=== PATIENT | female | born 1950 | race Caucasian/White ===

== ENCOUNTER → 2017-07-25 15:06 | Outpatient (CLI) | payer MEDICARE, SELFPAY ==
--- NOTE | 2017-07-25 15:08 | RAD_ITS ---
STUDY: X-RAY CHEST REASON FOR EXAM: Female, 66 years old. Cough fever and shortness of breath TECHNIQUE: PA and lateral views of the chest. COMPARISON: None. FINDINGS: The lungs are clear and expanded. There is no demonstrated pleural abnormality. Normal size heart. Normal mediastinum and sree. Normal visualized pulmonary arteries. There are calcified plaques of the aortic arch. Orthopedic hardware is seen in the thoracolumbar region. Normal visualized ribs, clavicles, and shoulders. There is no demonstrated abnormality of the visualized soft tissue structures of the upper abdomen. RAD/Chest PA and Lateral IMPRESSION: Orthopedic hardware seen in the thoracolumbar region. Calcified plaques of the aortic arch. No acute cardiopulmonary disease process is seen. Electronically Signed: Archie Urena MD at 22:56 EDT , Service support ,
== END ==
PROVIDERS: Family Provider Family Medicine; PCP Family Medicine; Visit Provider Family Medicine
DX: R05 Cough (principal)
CPT/HCPCS: 71046

== ENCOUNTER 2017-08-14 15:30 | Outpatient (RCR) | payer MEDICARE, SELFPAY ==
--- NOTE | 2017-04-24 15:31 | HP.PTEVAL_ITS ---
Patient's Visit Information INDIGO ROD is a 66 year old F referred to Physical Therapy by Out of Town Doctor CJ PINK with a diagnosis of BACK AND RIGHT LEG PAIN. Date of Evaluation: 04/24/17 Physical Therapist: Shonna Cabrera - Visit Plan Frequency: 2-3x /Week Duration: 4-6 Weeks Plan: AQUATIC THERAPY. POSTURE CORRECTION/STRENGTHENING, INSTRUCTION IN APPROPRIATE BODY MECHANICS AND ACTIVITY MODIFICATIONS. DLS STARTING WITH A NEUTRAL SPINE PROGRESSING ROM TOLERATED. RODO LE ROM, STRETCHING AND STRENGTHENING. HEP INSTRUCTION. - Subjective Subjective: Work/Leisure: RETIRED. Disability: YES. Present symptoms: BILATERAL LBP. PATIENT DENIES RODO LE PAIN, NUMBNESS AND TINGLING. SHE DOES HAVE RODO KNEE PAIN THOUGH. RODO INTERMITTENT SHARP PAINS INTO RODO BUTTOCK REGIONS. Present since: JAN 2016 BACK SURGERY. LBP PRIOR ALSO - CHRONIC. Pain Scale: BACK: WORSE 7/10, LEAST 3/10. RIGHT KNEE: WORST 9/10, LEAST 5/ 10. Currently: BACK 4/10. RIGHT KNEE: 6/10. SHE REPORTS HER KNEE IS GETTING WORSE AND HER BACK IS UNCHANGING. Commenced as a result of: HURTING HER BACK IN 1983. CHRONIC RIGHT KNEE PAIN AND ARTHRITIS. Symptoms at onset: BACK. Worse: WALKING, STANDING, ADL'S, *BENDING*, GETTING IN/OUT OF CAR. Better: LYING DOWN. Disturbed sleep: YES - RLS. Previous history: 1983 HURT HER BACK AND THAT IS WHEN HER BACK PROBLEMS STARTED. NOT SURE WHEN KNEE PAIN STARTED BUT IT HAS BEEN A LONG TIME. Previous treatment: AQUATIC THERAPY, INJECTIONS, LAND EX, CHIRO ALL PRIOR TO SURGERY. PT SINCE SURGERY HERE AT [facility] [place]. LEFT KNEE DRAINED. RIGHT KNEE CORTISONE INJECTIONS WITH TEMP. RELEIF. SYNVISC TYPE INJECTIONS RIGHT KNEE. NO RIGHT KNEE SURGERY. LEFT TKR 2012. Coughing/ sneezing/straining: NEGATIVE. Gait: CANE ALMOST AT ALL TIMES. Difficulty initiating urinatin: NO. Accidents: NO. Unexplained weight loss: NO. PMH: FIBROMYALGIA AND SEE BELOW. Recent major surgery: BLADDER STIMULATOR PLACEMENT MID APRIL. OTHER: THE RIGHT KNEE HAS BEEN BONE ON BONE FOR 3-4 YEARS. HER LEFT KNEE WAS REPLACE IN 2012 BUT SHE STATES IT HURTS HER QUITE A BIT TOO. SHE IS AVOIDING RIGHT TKR DUE TO THE PROBLEMS SHE HAD WITH HER LEFT. OTHER: CONSULT WITH DR. VILLAREAL FEB 2017 AND HE CONCURRED WITH PT ORDERED BY BACK SURGEONS NANOTECHNICIAN. DR. VILLAREAL RECOMMENDED SURGERY BUT CAUTIONED PATIENT OF DIFFICULTIES POST DUE TO LACK OF BEND IN RIGHT KNEE. HE ALSO RECOMMENDS REVISION OF LEFT KNEE. *PATIENT WAS ALSO SEEN HERE [place] FOR AQUATIC THERAPY FOR HER BACK* PATIENT REPORTS SHE IS DEFINATELY ABLE TO MOVE EASIER IN THE POOL AND FEELS BETTER IN THE POOL. - Objective Sitting Posture: POOR. Standing Posture: POOR. Lordosis: REDUCED. Active Correction of posture: WORSE. Other Observations: INDEP GAIT INTO PT WITH A STRAIGHT CANE, RIGHT KNEE BRACE (GIVEN TO HER BY DR. VILLAREAL ABOUT 6 MONTHS AGO) , DECREASED CADANCE AND DECREASED RODO STRIDE LENGTH. NO LOB. Lumbar mvmt loss : flex - MOD. ext - SIMON. RSG - SIMON. LSG - SIMON. RIGHT LE STRENGTH: HIP FLEX 3+/5, KNEE EXT 3-/5, KNEE FLEX 4/5, ANKLE DORSIFLEXION 5/5. LLE STRENGTH: HIP FLEX 4-/5, KNEE EXT 3-/5, KNEE FLEX 4/5 AND ANKLE DORSIFLEXION 5/5. UNABLE TO TRANSFER SIT TO STAND WITHOUT UE SUPPORT. POOR CORE STRENGTH. ABLE TO SLS X APPROX 30 SEC WITHOUT UE SUPPORT ON THE LLE NOW AND 5 SEC ON RIGHT LE. NEGATIVE RODO LE DURAL TESTING. TIGHT RODO LE HS'S AND GASTROC SOLEUS COMPLEX' S. -23 DEG TO 78 DEG FLEXION AROM OF THE RIGHT KNEE IN SUPINE WITH A HEEL SLIDE. ERP INTO FLEXION. L KNEE: -18 TO 90 DEG FLEX. KNEE ROM TESTING PROVOKES PAIN. - Goals Goal 1:: DECREASE C/O BACK AND RODO LE PAIN Goal Time Frame: 4-6 Weeks Goal 2:: IMPROVE STANDING, WALKING, ADL AND SLEEP FUNCTION Goal Time Frame: 4-6 Weeks Goal 3:: INSTRUCT IN PROPHYLAXIS Goal Time Frame: 4-6 Weeks - Rehabilitation Potential Rehabilitation Potential: Fair - Anticipated Interventions Patient/Client Instruction: Educate patient on: Condition, Plan of Care, Risk Factors, Benefits of Fitness Program For the Purpose of:: To improve self management Therapeutic Exercise to Include: Strength training, Body mechanics, Postural training, Flexibilty training, Gait and locomotor training, In an aquatic setting, Dynamic Lumbar Stabilization For the Purpose of:: To improve muscle performance and motor function, To improve ability of physical actions for home/community/work/leisure Thank you for the opportunity to evaluate your patient. For Medicare and Medicare HMO plans, please review the plan of care and approve it. It will need to be FAXED BACK to us at [phone] for Medicare purposes. Please let me know if there are questions or concerns regarding this plan of care. Physician Signature: Date:
--- NOTE | 2017-06-21 16:48 | HP.PTREVAL ---
CJ WILSON.KATIE HIRSCH.CJ HIRSCH It has been my pleasure to treat INDIGO ROD over the last 15 visits for BACK AND RIGHT LEG PAIN. Please see the progress note below for an update on the physical therapy plan of care! Subjective: PATIENT IS HAPPY TO REPORT THAT SHE CAN NOW PUT HER PANTS ON SOMETIMES WITHOUT USING HER BOARD CERTIFIED MUSIC THERAPIST. REPORTS SHE HAS BEEN WORKING HARD AND IS MOTIVATED TO GET STRONG POSSIBLE BEFORE PENDING RIGHT TKR WITH DR. TORIBIO IN AUGUST 2017. STATES SHE HAS BEEN COMING IN TO [employer] USE THE NUSTEP ONCE A WEEK, AND WORK ON HER POOL PROGRAM ONCE A WEEK ALONG WITH FORMAL PT ONCE A WEEK. PATIENT REPORTS PT IS HELPFUL ONCE A WEEK AND IS HOPING TO HAVE A FEW MORE SESSIONS DUE TO CONTINUED IMPROVEMENT AND THE BENEFITS OF PT INSTRUCTION FOR TECHNIQUE AND PROGRESSION. Objective/Function: THIS PATIENT AMBULATES [facility] INTO PT WITH VERY LITTLE DEPENDENCE ON STAIGHT CANE AND WITH INCREASED CADANCE. HER GAIT AND TRANSFERS IN GENERAL ARE LESS GUARDED TODAY. PATIENT IS REPORTING SOME DECREASED PAIN AND INCREASED FUNCTION OVER THE LAST MONTH. CURRENTLY SHE IS MORE COMPLIANT AND CONSISTENT WITH INDEP EX THAN I HAVE EVER KNOWN IN THE PAST. THIS INCREASED TRANSITION TO INDEPENDENCE IS A BIG IMPROVEMENT. SHE ALSO HAS SIGNIFICANT INCREASED ROM IN BOTH KNEES UPON EXAM TODAY: RIGHT KNEE AROM IN SUPINE WITH A HEEL SLIDE = -15 DEG EXT TO 89 DEG FLEX. LEFT = -10 DEG EXT TO 95 DEG FLEX. WOULD RECOMMEND CONTINUED PT 1X/WEEK. Plan Plan: CONTINUE PT/AQUATIC THERAPY 1X/WEEK X 5 VISITS FOR PROGRESSION OF CORE STABILIZATION AND RODO LE ROM, STRETCHING AND STRENGTHENING TOLERATED. PATIENT IS AGREEABLE TO THIS POC. Goals Goal 1:: DECREASE C/O BACK AND RODO LE PAIN Goal Time Frame: 4-6 Weeks Goal Progress: Progressing Goal 2:: IMPROVE STANDING, WALKING, ADL AND SLEEP FUNCTION Goal Time Frame: 4-6 Weeks Goal Progress: Progressing Goal 3:: INSTRUCT IN PROPHYLAXIS Goal Time Frame: 4-6 Weeks Goal Progress: Progressing Anticipated Interventions Patient/Client Instruction: Educate patient on: Condition, Plan of Care, Risk Factors, Benefits of Fitness Program For the Purpose of:: To improve self management Therapeutic Exercise to Include: Strength training, Body mechanics, Postural training, Flexibilty training, Gait and locomotor training, In an aquatic setting, Dynamic Lumbar Stabilization For the Purpose of:: To improve muscle performance and motor function, To improve ability of physical actions for home/community/work/leisure Please do not hesitate to contact me at [phone] by phone or if you have questions or concerns regarding this new plan of care! Sincerely, Shonna Cabrera
--- NOTE | 2017-08-14 16:35 | HP.PTDCSUM ---
HP - PT D/C Summary It has been my pleasure to treat INDIGO ROD under orders from CJ PINK, for the diagnosis of BACK AND RIGHT LEG PAIN for a total of 20 visit(s). Discharge Date: Please see the following information for a summary of their discharge status. - Subjective Subjective: PATIENT REPORTS THE FLU SET HER BACK BUT SHE WAS ABLE TO WALK TO HER SISTERS HOUSE THE OTHER DAY. - Pain R knee Pain Intensity (Out of 10): Unrated LBP Pain Intensity (Out of 10): Unrated - Objective Objective/Function: OVER-ALL PATIENT HAS IMPROVED. SHE IS INDEP WITH A WATER EX PROGRAM. - Goals Goal 1:: DECREASE C/O BACK AND RODO LE PAIN Goal Progress: Goal Met Goal 2:: IMPROVE STANDING, WALKING, ADL AND SLEEP FUNCTION Goal Progress: Goal Met Goal 3:: INSTRUCT IN PROPHYLAXIS Goal Progress: Goal Met - Plan Plan: D/C TO INDEP EX. - D/C Information If there are questions or concerns regarding this patient's physical therapy, please feel free to call me at [phone]. Thank you for the referral of this patient. Sincerely, Shonna Cabrera
== END 2017-08-14 19:00 | disposition home or self-care (01) ==
LOC: PT 15:30
PROVIDERS: Family Provider Family Medicine; PCP Family Medicine
DX: M41.25 Other idiopathic scoliosis, thoracolumbar region (principal); M48.061 Spinal stenosis, lumbar region without neurogenic claudication; M17.11 Unilateral primary osteoarthritis, right knee
CPT/HCPCS: 97113; 97163; 97530

== ENCOUNTER 2018-03-26 13:00 | Outpatient (RCR) | payer MEDICARE, SELFPAY ==
--- NOTE | 2017-11-01 17:21 | HP.PTEVAL_ITS ---
Patient's Visit Information INDIGO ROD is a 67 year old F referred to Physical Therapy by Marv Casanova with a diagnosis of S/P RIGHT TKR 09/17/17. PRIMARY OA OF RIGHT KNEE.. Date of Evaluation: 11/01/17 Physical Therapist: Shonna Cabrera - Visit Plan Frequency: 2x /Week Duration: 4-6 Weeks Plan: PATIENT IS CURRENTLY 6 WEEKS PO RIGHT TKR. *H/O OF MAJOR BACK SURGERY*. AQUATIC THERAPY FOR PAIN RELEIF, POSTURE CORRECTION/STRENGTHENING, INSTRUCTION IN APPROPRIATE BODY MECHANICS AND ACTIVITY MODIFICATIONS. DLS STARTING WITH A NEUTRAL SPINE PROGRESSING ROM TOLERATED. RODO LE ROM, STRETCHING AND STRENGTHENING. HEP INSTRUCTION. - Subjective Subjective: THIS PATIENT PRESENTS TO PT REPORTING THAT SHE HAD HER KNEE REPLACEMENT 09/17/17 AND REHAB HAS BEEN DIFFICULT BUT NO COMPLICATIONS THAT SHE IS AWARE OF. HEALING NICELY FAR SHE KNOWS BUT BENDING IS DIFFICULT. SHE REPORTS SHE HAS HAD RIGHT KNEE PAIN FOR A LONG TIME AND IT WAS IN BAD SHAPE. S/ P LEFT TKR 2011 AND IT HURTS AND GIVES HER PROBLEMS. SHE STATES SHE ISN'T SURE WHAT TO THINK FAR HOW SHE IS DOING AT THIS POINT BECAUSE THE HOME PT SEEMED SURPRISED SHE COULD ONLY BEND HER KNEE TO ABOUT 90 DEG THE LAST VISIT. STATES SHE DID HAS HAD SOME TROUBLE WITH PAIN CONTROL SINCE THE SURGERY. CURRENTLY HER RIGHT KNEE PAIN IS RANGING 4-7/10. BETTER WITH: LYING DOWN AND ICING IT. WORSE WITH: MY EXERCISES, STANDING IS THE WORSE, AND SOMETIMES WALKING. PATIENT REPORTS SHE HAS BEEN TRYING TO WALK OUTSIDE FOR EXERCISE WITH GRANDSON AND SHE THINKS SHE OVER-DID IT A LITTLE BIT THE LAST TIME. PMH: 2014 MAJOR SPINAL FUSION. LEFT TKR 2011. HTN. BLADDER STIMULATOR - Pain RIGHT KNEE Pain Intensity (Out of 10): 5 Pain Intensity Range: 4, 7 - Objective THIS PATIENT AMBULATES INDEP'LY INTO PT WITH A STRAIGHT CANE WITH DECREASED CADANCE AND A MILD LIMP ON THE RIGHT LE AND DECRASED HEEL STRIKE AND TOE OFF PHASES OF GAIT ALONG WITH DECRASED RIGHT KNEE FLEXION DURING SWING PHASE. INCREASED KNEE FLEXION DURING STANCE PHASE. SENSATION: SOME HYPERSENSATIVITY RODO CALVES AND SHINS RIGHT > LEFT BUT PATIENT REPORTS IT WAS LIKE THAT BEFORE SURGERY TOO. SHE HAS SOME DECREASED LIGHT TOUCH SENSATION OF RODO LATERAL KNEES. STRENGTH: LEFT HIP 4-/5, KNEE FLEX/EXT 4/5, ANKLE 5/5. RIGHT HIP FLEX 3 +/5, KNEE EXT 3-/5, KNEE FLEX 3-/5, ANKLE 5/5. ROM: LEFT KNEE ROM -8 DEG EXT TO 102 DEG FLEX IN SUPINE WITH A HEEL SLIDE. RIGHT KNEE ROM -18 DEG EXT TO 90 DEG FLEX IN SUPINE WITH A HEEL SLIDE. PATIENT HAS MOD RIGHT KNEE EDEMA AND INCISION LOOKS GOOD WITHOUT ANY SIGNS OF INFECTION. SHE IS INDEP WITH ALL TRANSFERS BUT UE DEPENDENT. - Goals Goal 1:: DECREASE RIGHT KNEE EDEMA Goal Time Frame: 4-6 Weeks Goal 2:: INDEP AND SAFE GAIT WITH LEAST ASSISTIVE DEVICE ON LEVEL SURFACES AND UP/DOWN STEPS. Goal Time Frame: 4-6 Weeks Goal 3:: INCREASE FUNCTIONAL ROM RIGHT LE Goal Time Frame: 4-6 Weeks Goal 4:: INCREASE FUNCTIONAL STRENGTH RIGHT LE Goal Time Frame: 4-6 Weeks Goal 5:: INDEP WATER AND LAND EX PROGRAMS. - Rehabilitation Potential Rehabilitation Potential: Fair - Anticipated Interventions Patient/Client Instruction: Educate patient on: Condition, Plan of Care, Risk Factors, Benefits of Fitness Program For the Purpose of:: To improve self management Therapeutic Exercise to Include: Strength training, Balance training, Body mechanics, Postural training, Flexibilty training, Gait and locomotor training, In an aquatic setting, Passive ROM, Active ROM, Dynamic Lumbar Stabilization For the Purpose of:: To decrease pain, To decrease swelling/inflammation, To increase ROM, To improve muscle performance and motor function, To improve ability to perform ADL's, To increase tolerance to activity/condition/position, To improve ability of physical actions for home/community/work/leisure, To improve gait and locomotor functions Thank you for the opportunity to evaluate your patient. For Medicare and Medicare HMO plans, please review the plan of care and approve it. It will need to be FAXED BACK to us at [phone] for Medicare purposes. Please let me know if there are questions or concerns regarding this plan of care. Physician Signature: Date:
--- NOTE | 2017-12-06 17:10 | HP.PTREVAL_ITS ---
Marv Casanova, It has been my pleasure to treat INDIGO ROD over the last 10 visits for S/P RIGHT TKR 09/17/17. PRIMARY OA OF RIGHT KNEE.. Please see the progress note below for an update on the physical therapy plan of care! Subjective: PATIENT REPORTS SHE IS WALKING A LOT BETTER AND HAS A LOT LESS PAIN BUT SHE JUST CAN'T GET IT TO BEND. SHE REPORTS THE KNEE EX'S ARE REALLY PUTTING A STRAIN ON HER BACK. LEFT KNEE PAIN IS RANGING 3/10 TO 7/10. STATES SHE IS USING THE CANE A LOT LESS AND ONLY USING IT WHEN SHE GOES OUT. Objective/Function: LEFT KNEE ROM IN SUPINE WITH A HEEL SLIDE = -15 DEG EXT TO 94 DEG FLEX. HEP TECHNIQUE CORRECTION GIVEN TODAY TO TRY TO REDUCE STRAIN ON LOW BACK. PATIENT REPORTED SATISFACTION WITH NEW PLAN AFTER GIVEN. RECOMMEND CONTINUED PT BASED ON MEDICAL NECESSITY WITH IMPROVED GAIT, LLE STRENGHT AND DECREASED L KNEE SWELLING AND PAIN WITH ROOM FOR FURTHER IMPROVEMENT. Plan Plan: CONT PER POC DECREASING TO 2X'S A WEEK X 3 WEEKS. MEASURE KNEE AT LEAST EVERY OTHER VISIT AND ADJUST HOME EX PROGRAM NEEDED. Goals Goal 1:: DECREASE RIGHT KNEE EDEMA Goal Time Frame: 4-6 Weeks Goal Progress: Progressing Goal 2:: INDEP AND SAFE GAIT WITH LEAST ASSISTIVE DEVICE ON LEVEL SURFACES AND UP/DOWN STEPS. Goal Time Frame: 4-6 Weeks Goal Progress: Progressing Goal 3:: INCREASE FUNCTIONAL ROM RIGHT LE Goal Time Frame: 4-6 Weeks Goal Progress: Not Progressing Goal 4:: INCREASE FUNCTIONAL STRENGTH RIGHT LE Goal Time Frame: 4-6 Weeks Goal Progress: Progressing Goal 5:: INDEP WATER AND LAND EX PROGRAMS. Goal Progress: Progressing Anticipated Interventions Patient/Client Instruction: Educate patient on: Condition, Plan of Care, Risk Factors, Benefits of Fitness Program For the Purpose of:: To improve self management Therapeutic Exercise to Include: Strength training, Balance training, Body mechanics, Postural training, Flexibilty training, Gait and locomotor training, In an aquatic setting, Passive ROM, Active ROM, Dynamic Lumbar Stabilization For the Purpose of:: To decrease pain, To decrease swelling/inflammation, To increase ROM, To improve muscle performance and motor function, To improve ability to perform ADL's, To increase tolerance to activity/condition/position, To improve ability of physical actions for home/community/work/leisure, To improve gait and locomotor functions Please do not hesitate to contact me at [phone] by phone or Fax: if you have questions or concerns regarding this new plan of care! Sincerely, Shonna Cabrera
--- NOTE | 2018-01-13 14:32 | HP.PTREVAL_ITS ---
Marv Casanova, It has been my pleasure to treat INDIGO ROD over the last 18 visits for S/P RIGHT TKR 09/17/17. PRIMARY OA OF RIGHT KNEE.. Please see the progress note below for an update on the physical therapy plan of care! Subjective: PATIENT REPORTS SHE IS DOING GOOD. PATIENT IS EXRESSING GREAT APPRECIATION FOR THE HELP WE HAVE GIVEN HER FOR THE PROGESS SHE HAS MADE SO FAR. REPORTS SANA THINKS SHE SHOULD GO TO LAND AND REPORTS SHE IS WILLING TO TRY BUT HER BACK MIGHT LIMIT HER. Objective/Function: THIS PATIENT AMBULATES INDEP'LY INTO PT WITHOUT ANY ASSISTIVE DEVICES AND FAIR CADANCE TODAY. NO LOSS OF BALANCE. SHE IS REPORTING MUCH REDUCED PAIN AND IMPROVED BALANCE OVER-ALL SINCE STARTING PT. RIGHT KNEE ROM IN SUPINE WITH A HEEL SLIDE = -5 DEG EXT TO 100 DEG FLEX. PATIENT IS MAKING SLOW PROGRESS TOWARD ALL PT GOALS. LEFS HAS IMPROVED FROM 22 TO 34 SINCE LAST RE-CHECK (AND ROM 14 SINCE INITIAL EVAL). STRENGTH: LEFT HIP 4-/5, KNEE FLEX/EXT 4/5, ANKLE 5/5. RIGHT HIP FLEX 4-/5, KNEE EXT 4-/5, (IN AVAILABLE RANGE) KNEE FLEX 4-/5 (IN AVAILABLE RANGE), ANKLE 5/5. Plan Plan: *H/O OF MAJOR BACK SURGERY*. RECOMMEND TRANSITION FROM AQUATIC THERAPY TO LAND PT FOR GAIT/BANLANCE/PROPRIOCEPTION TRAINING, DLS STARTING WITH A NEUTRAL SPINE, RODO LE ROM, STRETCHING AND STRENGTHENING FORCUSING ON RIGHT KNEE APPROX 3 MONTHS S/P TKR. HEP INSTRUCTION. Goals Goal 1:: DECREASE RIGHT KNEE EDEMA Goal Time Frame: 4-6 Weeks Goal Progress: Progressing Goal 2:: INDEP AND SAFE GAIT WITH LEAST ASSISTIVE DEVICE ON LEVEL SURFACES AND UP/DOWN STEPS. Goal Time Frame: 4-6 Weeks Goal Progress: Progressing Goal 3:: INCREASE FUNCTIONAL ROM RIGHT LE Goal Time Frame: 4-6 Weeks Goal Progress: Not Progressing Goal 4:: INCREASE FUNCTIONAL STRENGTH RIGHT LE Goal Time Frame: 4-6 Weeks Goal Progress: Progressing Goal 5:: INDEP WATER AND LAND EX PROGRAMS. Goal Progress: Progressing Anticipated Interventions Patient/Client Instruction: Educate patient on: Condition, Plan of Care, Risk Factors, Benefits of Fitness Program For the Purpose of:: To improve self management Therapeutic Exercise to Include: Strength training, Balance training, Body mechanics, Postural training, Flexibilty training, Gait and locomotor training, In an aquatic setting, Passive ROM, Active ROM, Dynamic Lumbar Stabilization For the Purpose of:: To decrease pain, To decrease swelling/inflammation, To increase ROM, To improve muscle performance and motor function, To improve ability to perform ADL's, To increase tolerance to activity/condition/position, To improve ability of physical actions for home/community/work/leisure, To improve gait and locomotor functions Please do not hesitate to contact me at [phone] by phone or Fax: if you have questions or concerns regarding this new plan of care! Sincerely, Shonna Cabrera
--- NOTE | 2018-02-13 14:34 | HP.PTREVAL_ITS ---
Marv Casanova, It has been my pleasure to treat INDIGO ROD over the last 27 visits for S/P RIGHT TKR 09/17/17. PRIMARY OA OF RIGHT KNEE.. Please see the progress note below for an update on the physical therapy plan of care! Subjective: OUT IN THE COLD FOR SO LONG CUTTING KARIMI YESTERDAY AND VERY STIFF TODAY. PATIENT REPORTS THAT SINCE HE STARTED THE LAND TREATMENTS AND STRETCHING MORE AT HOME HER RESTLESS LEG SX'S ARE MUCH WORSE. AT HOME SHE IS HAVING A VERY DIFFICULT TIME ON STEPS - MUCH EASIER HERE. PATIENT REPORTS SHE HAD A VERY HARD TIME WALKING FOR ABOUT 3 DAYS AFTER DOING THE LEG STRETCH WITH THE STRAP AROUND HER FOOT SO SHE STARTED DOING IT WITH HER SHOES ON AND IT HELPS BUT IT STILL HURTS HER FOOT. AFTER THE THERAPY SESSSIONS ON LAND IT ISN'T UNCOMMON FOR HER TO GET SHOOTING PAINS IN HER RODO BUTTOCK REGIONS. PATIENT REPORTS SHE JUST CAN'T GET HER STRENGTH BACK AND SHE REALLY HASNT' BEEN ABLE TO SINCE SHE HAD HER BACK SURGERY. PATIENT REPORTS IT IS HARD FOR HER TO TELL WHAT SHE HAS ACTUALLY GAINED SINCE TRYING LAND PT. Objective/Function: THIS PATIENT AMBULATES INDEP'LY INTO PT WITHOUT ANY ASSISTIVE DEVICES AND VERY SLOW GUARDED GAIT TODAY. NO LOSS OF BALANCE. RIGHT KNEE ROM IN SUPINE WITH A HEEL SLIDE = -8 DEG EXT TO 102 DEG FLEX. PATIENT IS NOT MAKING PROGRESS TOWARD PT GOALS AT THIS TIME, HER % RATED IMPROVEMENT HAS NOT CHANGED, HER REPORTS OF PAIN HAVE INCREASED AND HER LEFS HAS IMPROVED NOT SIGNIFICANTLY CHANGED SINCE LAST RE-CHECK. PATIENT IS ALSO NOT TOLERATING NEW ST ETCHES WELL AT HOME - SHE CAN NOT FIND A PLACE TO DO THE HIP FLEXOR STRETCH AND THE HS STRETCH WITH STRAP HURTS HER FOOT. HER BROTHER MADE HER A SLANT BOARD FOR CALF STRETCHING. RECOMMEND INDEP POOL PROGRAM 3 TIMES A WEEK FOR 3 WEEKS THEN RE-CHECK DUE TO PAST PROGRESS WITH AQUATIC THERAPY WITHOUT THE INCREASED PAIN AND RLS SX'S THAT SHE HAS HAD SINCE LAST RE-CHECK. PATIENT WILL CONSIDER Plan Plan: RE-CHECK IN 3 WEEKS. PATIENT AGREEABLE. Goals Goal 1:: DECREASE RIGHT KNEE EDEMA Goal Time Frame: 4-6 Weeks Goal Progress: Not Progressing Goal 2:: INDEP AND SAFE GAIT WITH LEAST ASSISTIVE DEVICE ON LEVEL SURFACES AND UP/DOWN STEPS. Goal Time Frame: 4-6 Weeks Goal Progress: Not Progressing Goal 3:: INCREASE FUNCTIONAL ROM RIGHT LE Goal Time Frame: 4-6 Weeks Goal Progress: Not Progressing Goal 4:: INCREASE FUNCTIONAL STRENGTH RIGHT LE Goal Time Frame: 4-6 Weeks Goal Progress: Not Progressing Goal 5:: INDEP WATER AND LAND EX PROGRAMS. Goal Progress: Not Progressing Anticipated Interventions Patient/Client Instruction: Educate patient on: Condition, Plan of Care, Risk Factors, Benefits of Fitness Program For the Purpose of:: To improve self management Therapeutic Exercise to Include: Strength training, Balance training, Body mechanics, Postural training, Flexibilty training, Gait and locomotor training, In an aquatic setting, Passive ROM, Active ROM, Dynamic Lumbar Stabilization For the Purpose of:: To decrease pain, To decrease swelling/inflammation, To increase ROM, To improve muscle performance and motor function, To improve ability to perform ADL's, To increase tolerance to activity/condition/position, To improve ability of physical actions for home/community/work/leisure, To improve gait and locomotor functions Please do not hesitate to contact me at [phone] by phone or if you have questions or concerns regarding this new plan of care! Sincerely, Shonna Cabrera
--- NOTE | 2018-03-27 13:22 | HP.PTDCSUM ---
HP - PT D/C Summary It has been my pleasure to treat INDIGO ROD under orders from Marv Casanova, for the diagnosis of S/P RIGHT TKR 09/17/17. PRIMARY OA OF RIGHT KNEE. for a total of 28 visit(s). Discharge Date: 03/26/18 Please see the following information for a summary of their discharge status. - Subjective Subjective: PATIENT REPORTS SHE WAS EXHAUSTED AFTER GETTING BACK FROM [facility] LAST WEEK SO SHE IS GLAD HER APPOINTMENT IS TODAY INSTEAD OF LAST WEEK. PATIENT REPORTS SHE SAW DR. TORIBIO AND HE SAID THAT SHE IS DOING GOOD. HE TOLD HER THE SWELLING SHOULD CONTINUE TO GO DOWN. FOLLOW UP SCHEDULE FOR HER KNEE AGAIN IN A YEAR. ALSO SAW DR. XIE FOR HER BACK SURGERY (3 YEAR FOLLOW UP) AND THEY RE-XRAY'D HER BACK AND TOLD HER THAT EVERYTHING LOOKS GOOD. DOES NOT NEED TO FOLLOW UP WITH HIM AGAIN FOR A YEAR OR TWO. OVER-ALL SHE REPORTS SHE IS A LOT BETTER. SHE PLANS TO CONTINUE HER HOME EX'S AND USE THE NUSTEP HERE AT [facility] BUT SO FAR THE LOCAL POOL SITUATIONS ARE NOT WORKING FOR HER. SHE IS QUESTIONING WHAT I WOULD RECOMMEND AT THIS POINT FOR EX TOO. - Pain RIGHT KNEE Pain Intensity (Out of 10): 3 Lumbar Spine Pain Intensity (Out of 10): 3 L knee Pain Intensity (Out of 10): 2 - Overall Improvement % Improvement: 80 - Objective Objective/Function: THIS PATIENT AMBULATES INDEP'LY INTO PT WITHOUT ANY ASSISTIVE DEVICES AND SLOW BUT LESS GUARDED GAIT TODAY. NO LOSS OF BALANCE. RIGHT KNEE ROM IN SUPINE WITH A HEEL SLIDE = -7 DEG EXT TO 100 DEG FLEX. PATIENT IS NOT CONTINUING TO MAKE SIGNIFICANT PROGRESS TOWARD PT GOALS AT THIS TIME, HER % RATED IMPROVEMENT IMPROVED MINIMALLY WITH BREAK FROM FORMAL PT WELL HER REPORTS OF PAIN. HER LEFS HAS IMPROVED 2 POINTS SINCE LAST RE-CHECK. PATIENT DID NOT TOLERATE LAND PROGRESSION WELL BUT TOLERATES NUSTEP WELL. RECOMMEND HEP AND INDEP POOL PROGRAM ABLE AT THIS TIME. PATIENT IS AGREEABLE AND STATES SHE IS HAPPY WITH HER PROGRESS OVER-ALL. - Goals Goal 1:: DECREASE RIGHT KNEE EDEMA Goal Progress: Goal Met Goal 2:: INDEP AND SAFE GAIT WITH LEAST ASSISTIVE DEVICE ON LEVEL SURFACES AND UP/DOWN STEPS. Goal Progress: Goal Met Goal 3:: INCREASE FUNCTIONAL ROM RIGHT LE Goal Progress: Goal Met Goal 4:: INCREASE FUNCTIONAL STRENGTH RIGHT LE Goal Progress: Goal Met Goal 5:: INDEP WATER AND LAND EX PROGRAMS. Goal Progress: Goal Met - Plan Plan: D/C TO INDEP EX. - D/C Information If there are questions or concerns regarding this patient's physical therapy, please feel free to call me at [phone]. Thank you for the referral of this patient. Sincerely, Shonna Cabrera
== END 2018-03-26 19:00 | disposition home or self-care (01) ==
LOC: PT 13:00
PROVIDERS: Family Provider Family Medicine; PCP Family Medicine; Visit Provider Orthopaedic Surgery
DX: Z96.651 Presence of right artificial knee joint (principal); M17.11 Unilateral primary osteoarthritis, right knee
CPT/HCPCS: 97110; 97113; 97162; 97164; 97530

== ENCOUNTER → 2018-11-17 | Outpatient (CLI) | payer MEDICARE, SELFPAY | END | disposition home or self-care (01) | PROVIDERS: Family Provider Family Medicine; PCP Family Medicine; Visit Provider Family Medicine | DX: N30.80 Other cystitis without hematuria (principal) | CPT/HCPCS: 87086; 87088; 87186 ==

== ENCOUNTER → 2019-12-08 14:31 | Outpatient (CLI) | payer MEDICARE, SELFPAY ==
--- NOTE | 2019-12-08 14:53 | RAD_ITS ---
STUDY: X-RAY - RIGHT WRIST REASON FOR EXAM: Right wrist pain. TECHNIQUE: 3 view(s) of the wrist were obtained. COMPARISON: Radiographs 05/09/2017. FINDINGS: Normal visualized distal radius and ulna. Normal radiocarpal articulation. Normal distal radioulnar articulation. Normal carpal bones. There is moderate to severe joint space narrowing of the triscaphe articulation. There are marginal osteophytes and severe joint space narrowing of the carpometacarpal articulation of the thumb. Normal second through fifth carpometacarpal articulations. Normal visualized metacarpal bones. The soft tissue structures are unremarkable. 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 Electronically Signed: Lake Sanz MD at 8:58 EDT Tel , Service support ,
== END ==
PROVIDERS: PCP Family Medicine; Referring Provider Orthopaedic Surgery; Visit Provider Orthopaedic Surgery
DX: G56.01 Carpal tunnel syndrome, right upper limb (principal)
CPT/HCPCS: 73110

== ENCOUNTER → 2020-01-11 10:37 | Outpatient (CLI) | payer MEDICARE, SELFPAY ==
--- NOTE | 2020-01-11 12:49 | NEURO ---
NCS and/or EMG Patient Report Ordering Doctor: Payton Matos DATE OF SERVICE: 01/11/20 Indication:. Several months of right hand pain (primarily first digit) and intermittent numbness involving the first three digits depending on activity. More recently she has noted issues dropping small objects with the left hand, but no significant pain. Findings: Nerve conduction studies were performed in the right and left upper extremities. The right median motor study recording the abductor pollicis brevis showed a normal amplitude, prolonged distal latency and borderline conduction velocity. The right ulnar motor study recording the abductor digiti minimi showed a normal amplitude, normal distal latency and normal conduction velocity. No conduction block or focal slowing was present across the elbow. The right median sensory response recording digit two showed a slightly reduced amplitude, prolonged latency and slowed conduction velocity. The right ulnar sensory response recording digit five showed a normal amplitude, latency and conduction velocity. The right radial sensory response recording over the extensor snuff box showed a normal amplitude, latency and conduction velocity. The left median motor study recording the abductor pollicis brevis showed a normal amplitude, normal distal latency and normal conduction velocity. The left ulnar motor study recording the abductor digiti minimi showed a normal amplitude, normal distal latency and normal conduction velocity. No conduction block or focal slowing was present across the elbow. The left median sensory response recording digit two showed a normal amplitude, latency and conduction velocity. The left ulnar sensory response recording digit five showed a normal amplitude, latency and conduction velocity. The left radial sensory response recording over the extensor snuff box showed a normal amplitude, latency and conduction velocity. Right median-ulnar mixed palmar latencies showed a prolonged median latency compared to the ulnar. Left median-ulnar mixed palmar latencies showed a normal median latency compared to the ulnar. Needle EMG of the right upper extremity and cervical paraspinal muscles was performed. No denervation was seen in any muscle. A brief complex repetitive discharge was seen in the cervical paraspinal muscles. In the right abductor pollicis brevis, motor units were mildly polyphasic, but otherwise unremarkable. All other examined muscles demonstrated normal motor unit morphology, activation and recruitment patterns. Needle EMG of the left abductor pollicis brevis was performed. No denervation was seen. Motor unit morphology, activation and recruitment patterns were normal. Impression: This is a mildly abnormal study. There is electrophysiologic evidence of a mild median neuropathy across the right wrist. The pathophysiology is predominantly demyelinating with some evidence of chronic, secondary axonal loss. These findings would be compatible with the clinical diagnosis of carpal tunnel syndrome. In the left upper extremity there is no electrophysiologic evidence of a median mononeuropathy across the left wrist. Glenroy James D.O.
== END ==
PROVIDERS: PCP Family Medicine; Referring Provider Orthopaedic Surgery; Visit Provider Orthopaedic Surgery
DX: G56.01 Carpal tunnel syndrome, right upper limb (principal); R20.0 Anesthesia of skin
CPT/HCPCS: 95885; 95886; 95913

== ENCOUNTER → 2020-03-02 13:59 | Outpatient (CLI) | payer MEDICARE, SELFPAY ==
--- NOTE | 2020-03-02 14:05 | VDLE_ITS ---
Reason For Study: Edema RIGHT LEFT CFV is compressible, spontaneous, phasic, CFV is compressible, spontaneous, phasic, competent and demonstrates normal competent, and demonstrates normal augmentation. augmentation. FV is compressible, spontaneous, phasic, FV is compressible, spontaneous, phasic, competent and demonstrates normal competent and demonstrates normal augmentation. augmentation. POP V is compressible, spontaneous, phasic, POP V is compressible, spontaneous, phasic, competent and demonstrates normal competent and demonstrates normal augmentation. augmentation. T/P Trunk is compressible. T/P Trunk is compressible. PTV is compressible. PTV is compressible. RT PerV is compressible. LT PerV is compressible. SFJ is competent and measures 0.65 x 0.79 cm. SFJ is competent and measures 0.79 x 0.76 cm. GSV proximal thigh measures 0.32 x 0.29 cm. GSV proximal thigh measures 0.34 x 0.32 cm. GSV above knee is competent. GSV above knee is competent. GSV at knee measures 0.33 x 0.34 cm. GSV at knee measures 0.28 x 0.28 cm. GSV below knee is INCOMPETENT for greater GSV below knee is INCOMPETENT for greater than 0.5 seconds. than 0.5 seconds. ASV distal thigh is INCOMPETENT for greater SSV proximal calf is competent and measures than 0.5 seconds and measures 0.30 x 0.28 cm. 0.19 x 0.19 cm. ASV proximal calf is INCOMPETENT for greater than 0.5 seconds and measures 0.37 x 0.37 cm. SSV proximal calf is competent and measures 0.25 x 0.27 cm. Procedure This is a venous duplex using B-mode, color flow and spectral Doppler. Exam performed in department. A preliminary report was called and/or faxed to [facility]. Interpretation Summary Deep veins of the lower extremities are bilaterally patent and compressible segmentally. There is no evidence of deep vein thrombosis on either side. Valvular competence appears intact within the proximal deep venous systems bilaterally. The great saphenous veins appear bilaterally patent and compressible segmentally. Sapheno-femoral junctions are bilaterally competent . The right great saphenous vein appears competent above the knee. The right great saphenous vein appears incompetent below the knee. The left great saphenous vein appears competent above the knee. The left great saphenous vein appears incompetent below the knee. Small saphenous veins are patent and competent bilaterally. The right accessory saphenous vein in the distal thigh is incompetent. The right accessory saphenous vein in the proximal calf is incompetent. Ordering Physician: Zaida Land Referring Physician: Zaida Land Performed By: Chantal Quinn RVT
--- NOTE | 2020-03-02 14:50 | RAD_ITS ---
STUDY: X-RAY - CERVICAL SPINE REASON FOR EXAM: Female, 69 years old. NECK PAIN TECHNIQUE: 5 view(s) of the cervical spine were obtained. COMPARISON: None FINDINGS: Normal anterior atlantoaxial articulation. Normal odontoid process. Normal cervical lordosis. There is multi-level endplate spondylosis. There is multi-level degenerative disc disease with multilevel disc space narrowing. Normal visualized intervertebral neuroforamina. The soft tissue structures are unremarkable. RAD/Cerv Spine 4 or 5 Views IMPRESSION: Mild degenerative disc disease lower cervical spine appear Electronically Signed: Felton Ramirez MD at 15:12 EST Tel , Service support ,
== END ==
PROVIDERS: PCP Family Medicine; Referring Provider Family Medicine; Visit Provider Family Medicine
DX: R60.9 Edema, unspecified (principal); I87.8 Other specified disorders of veins; M54.2 Cervicalgia; I83.892 Varicose veins of left lower extremity with other complications
CPT/HCPCS: 72050; 93970

== ENCOUNTER 2020-03-10 14:00 | Outpatient (RCR) | payer MEDICARE, SELFPAY ==
--- NOTE | 2020-02-16 15:53 | HP.OTEVAL ---
Patient's Visit Information INDIGO ROD is a 69 year old F, referred to Occupational Therapy by Dr. Payton Matos DO, with a diagnosis of bilateral CTS. Date of Evaluation: 02/15/20 Occupational Therapist: Helen Brown, ALLIE/Karuna, CHT - Subjective This 69 year old female was seen for OT eval with Dx of bilateral CTS. pt states she is dropping objects and has difficulty bending over to get itmes. pt does use a bow repairer custom. pt states increase writing and picking up objects cause pain. pt states she does get tingling/numbness almost everyday- 1-2 x a day. pt states she likes to draw and paint/read. pt states she has braces but caused increase right thumb pain. pt would like to decrease pain and tingling and increase use of right hand with ADls and IADLs - ADLs Fasteners: Zippers, Snaps, [place], Belt Comments: some difficulty Kitchen: Open jars, Open bottle caps, Take dish out of oven, Load/unload cloud architect Comments: states she has her put dishes away and he does most of cooking Comments: pt states she likes to do crafts and make cards but is unable to due to painful thumb with scissor cutting. pt states she did attempt to use pool dumbells but was so painful she did not return to performing the ex without dumbells. pt likes to read and demo reading while holding book out in front of her elbows at 90-* flex and shoulders at 90* flex to avoid looking down while reading- (therapist will encourange Audio books or prop of arms up to decrease stress on shoulder/scapula region- - Pain right thumb 3 - ROM Wrist: right 65/70 left 65/70 CMC: right 30 left 20 MP: right 60 hyper-extends left 70 IP: right 80 left 90 Radial Abduction: right 35 left 40 ROM Comments: pt demo with CMC motion - Strength Industrial Truck Driver: right 15# with thumb pain left 70# Lateral Pinch: right 8# left 10# Tripod Pinch: right 2# left 10# Tip-to-Tip Pinch: right 2# left 8# - Sensation Thumb: right 2.83 left 2.83 Index: right 2.83 left 2.83 Middle: right 2.83 left 2.83 Ring: right 2.83 left 2.83 Little: right 2.83 left 2.83 - Special Tests Median Nerve Compression Test: positive bilaterally - Quick DASH-Disab of Arm,Shoulder& Hand Quick DASH Score: 43.1800 - Goals Goal:: pt will demo a right resource room special education teacher strength to 45# or greater to perform ADls and IADLs at IND level by d/c Goal:: pt will report no pain greater than 2/10 with use of right hand with ADls and IADLs by d/c Goal:: pt will demo understanding of joint portection lukas, ad. eq. to avoid stress on joints of bilateral hands with ADLs and IADLs at 3rd visit Goal:: pt will report no more than 1 episode of ting/numb in a 12 hour period by d/c - Rehabilitation General Assessment: pt demo with positive CTS and limited right resource room special education teacher strength with painful thumb with daily activities. pt demo with rolled shoulders and neck forward posture- Pt would benefit from skilled OT services 2x week for 4 weeks- therapy will ed. on posture, median nerve glides, wrist/thumb ergo and joint protection. Today therapist ed. pt on CTS, tx and the need of wrist cock-up braces for night use, (pt to bring in braces as the ones she has makes her right thumb hurt) therapist ed. on joint protection lukas. to avoid prolonged holding positions and limit stress with opening containers. pt receptive and agree to POC Rehabilitation Potential: Good - Anticipated Interventions A/AAROM/PROM, Strengthening, Triggerpoint Release, Modalities, Orthoses, Joint Protection/Energy Conservation, Ergonomic Education - Visit Plan Frequency: 1x/Week Duration: 4 Weeks TEXT: Thank you for the opportunity to evaluate your patient. For Medicare and Medicare HMO plans, please review the plan of care and approve it. It will need to be FAXED BACK to us at [phone] for Medicare purposes. Please let me know if there are questions or concerns regarding this plan of care. Physician Signature: Date:
--- NOTE | 2020-03-10 14:47 | HP.OTDCSUM_ITS ---
It has been my pleasure to treat INDIGO ROD under orders from Dr. Payton Matos DO, for the diagnosis of bilateral CTS for a total of 8 visit(s). Please see the following information for a summary of their discharge status. 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 R Lat pinch 9#. R Tripod 11#. Tip to Tip 10#. pt demo understanding of joint portection and ad. ew. use of cmc brace to provide protection and support to right thumb. Patient Goals: Decrease Pain, Use Hand/Wrist/Arm Normally Again, Be More Independent in ADLS Goal:: pt will demo a right roll coating machine operator strength to 45# or greater to perform ADls and IADLs at IND level by d/c Goal:: pt will report no pain greater than 2/10 with use of right hand with ADls and IADLs by d/c Goal:: pt will demo understanding of joint portection lukas, ad. eq. to avoid stress on joints of bilateral hands with ADLs and IADLs at 3rd visit Goal:: pt will report no more than 1 episode of ting/numb in a 12 hour period by d/c Plan: d/c Discharge Comments: Pt was seen for 8 OT visits. pt currently states her tingiling is few and far between and her pain around her thumb is better. PT has made god gains with ad. her tasks to limit joint stress. pt is using cmc brace with gardening tasks. pt is d/c with HEP and to return to with any new concerns. If there are questions or concerns regarding this patient's occupational therapy, please fell free to call me at [phone]. Thank you for the referral of this patient. Sincerely, Helen Brown, OTR/L, CHT
== END 2020-03-10 19:00 | disposition home or self-care (01) ==
LOC: OT 14:00
PROVIDERS: PCP Family Medicine; Referring Provider Orthopaedic Surgery; Visit Provider Orthopaedic Surgery
DX: G56.01 Carpal tunnel syndrome, right upper limb (principal)
CPT/HCPCS: 97035; 97166; 97167; 97530

== ENCOUNTER 2020-04-21 12:30 | Outpatient (RCR) | payer MEDICARE, SELFPAY ==
--- NOTE | 2020-03-17 15:04 | HP.PTEVAL_ITS ---
Patient's Visit Information INDIGO ROD is a 69 year old F referred to Physical Therapy by Dr. Zaida Land DO with a diagnosis of NECK PAIN. Date of Evaluation: 03/17/20 Physical Therapist: Shonna Cabrera, PT, Cert MDT - Visit Plan Frequency: 2-3x /Week Duration: 4-6 Weeks Plan: CERVICAL REGION US, POSTURE CORRECTION/STRENGTHENING, INSTRUCTION IN APPROPRIATE BODY MECHANICS AND ACTIVITY MODIFICATIONS. RODO UE ROM, STRETCHING AND STRENGTHENING TOLERATED TAKING RIGHT HAND CONDITION INTO CONSIDERATION. HEP INSTRUCTION. - Subjective Diagnosis: NECK PAIN. Present symptoms: CENTRAL NECK PAIN. PAIN RADIATES INTO SHOULDERS. NO TINGLING DOWN THE ARMS. Present since: MONTHS. Pain Scale: Worst - 7/10 Least - 3/10. Currently: 08/06. Commenced as a result of: NO APPARENT REASON. Symptoms at onset: SHOULDERS. Worse: LOOKING DOWN, GETTING ORNAMENTS OUT OF BOXES, LOOKING ANY DIRECTION OTHER THAN STRAIGHT AHEAD. Better: LYING DOWN. Disturbed sleep: NO SURE BECAUSE BAD SLEEPER ANYWAY. Previous history/Previous treatment: UNREMARKABLE. Dizziness: NO. Tinnitis: NO. Nausea: NO. Shortness of Breath: NO. Difficulty Swollowing: HAS BEEN CHOKING ON FOOD ABOUT 4 MONTHS OR LONGER - HAS NOT TOLD HER DOCTORS. DOES NOT HAPPEN EVERY DAY. CAUSES HER TO COUGH. THIS PT RECOMMENDED THAT SHE NOTIFY HER DOCTOR. Gait: NO NEW CHANGES. Unexplained weight loss: NO. Imaging: RECENT NECK X-RAYS: STUDY: X-RAY - CERVICAL SPINE. REASON FOR EXAM: Female, 69 years old. NECK PAIN. TECHNIQUE: 5 view(s) of the cervical spine were obtained. COMPARISON: None. . FINDINGS: Normal anterior atlantoaxial articulation. Normal odontoid process. Normal cervical lordosis. There is multi-level endplate spondylosis. There is multi- level degenerative disc disease with multilevel disc space. narrowing. Normal visualized intervertebral neuroforamina. The soft tissue structures are unremarkable. . RAD/Cerv Spine 4 or 5 Views. IMPRESSION: Mild degenerative disc disease lower cervical spine appear. . Electronically Signed: Felton Ramirez MD. at 15:12 EST. PMH: STUDY: X-RAY - CERVICAL SPINE. REASON FOR EXAM: Female, 69 years old. NECK PAIN. TECHNIQUE: 5 view(s) of the cervical spine were obtained. COMPARISON: None. . FINDINGS: Normal anterior atlantoaxial articulation. Normal odontoid process. Normal cervical lordosis. There is multi-level endplate spondylosis. There is multi- level degenerative disc disease with multilevel disc space. narrowing. Normal visualized intervertebral neuroforamina. The soft tissue structures are unremarkable. . RAD/Cerv Spine 4 or 5 Views. IMPRESSION: Mild degenerative disc disease lower cervical spine appear. . Electronically Signed: Felton Ramirez MD. at 15:12 EST. PMH: 2014 MAJOR SPINAL FUSION. LEFT TKR 2011. RIGHT TKR 2017. HTN. BLADDER STIMULATOR NO SHLD SURGERIES. - Objective Sitting Posture/Standing Posture: POOR. Active Correction of posture: NE. Motor deficit: RODO UE STRENGTH GROSSLY 4-/5 WITH MMT'ING. HANDS NT. WEARING RIGHT THUMB SPLINT AND RECENTLY HAD HAND OCCUPATIONAL THERAPY. Sensory deficit: RODO UE LIGHT TOUCH SENSATION INTACT AND SYMMETRICAL. ROM deficit: RODO UE ROM WFL WITH SHLD'S GROSSLY 70%. Dural Signs: NEGATIVE RODO UE'S. Cervical Mvmt Loss: Flex: MIN. Pro: NIL. Ext: MOD TO SIMON. Ret: SIMON. RSB: MOD TO SIMON. LSB: SIMON. R Rot: MOD TO SIMON. L Rot: MOD TO SIMON. PATIENT C/O INCREASED NECK PAIN WITH CERVICAL ROM TESTING ALL PLANES. Postural strength: POOR. Palpation: TENDERNESS AND INCREASED MUSCLE TONE OF CERIVAL REGIONS THROUGHOUT LOWER CERVICAL SPINE GREATER THAN UPPER. NO OCCIPUT TENDERNESS. TREATMENT: BRIEF NEUROMUSCULAR REEDUCATION - RETRAINING OF POSTURE IN SITTING. PATIENT REPORTED DECREASED PAIN IMMEDIATELY WITH USE OF SUPPORT IN LOW BACK. ENCOURAGED COMPLIANCE REGULARLY. - Goals Goal 1:: DECREASE C/O NECK PAIN Goal Time Frame: 4-6 Weeks Goal 2:: IMPROVE PERSONAL CARE, LIFTING, READING, HOUSEWORK, DRIVING AND RECREATIONAL FUNCTION. Goal Time Frame: 4-6 Weeks Goal 3:: INSTRUCT IN PROPHYLAXIS Goal Time Frame: 4-6 Weeks - Anticipated Interventions Patient/Client Instruction: Educate patient on: Condition, Plan of Care, Risk Factors, Benefits of Fitness Program For the Purpose of:: To improve self management Therapeutic Exercise to Include: Strength training, Body mechanics, Postural training, Flexibilty training, Neuromotor development, Active ROM, Scapular Strength/Stabilization For the Purpose of:: To decrease pain, To increase ROM, To improve muscle performance and motor function, To increase tolerance to activity/condition/position, To improve ability of physical actions for home/community/work/leisure Thermo therapy (hot pack): Yes Ultrasound (thermal/non thermal): Yes For the Purpose of:: To decrease pain, To improve nutrient delivery to tissue Thank you for the opportunity to evaluate your patient. For Medicare and Medicare HMO plans, please review the plan of care and approve it. It will need to be FAXED BACK to us at [phone] for Medicare purposes. For Medicare only, by signing this I certify the plan of care. Please let me know if there are questions or concerns regarding this plan of care. Physician Signature: Date:
--- NOTE | 2020-04-21 13:04 | HP.PTDCSUM ---
It has been my pleasure to treat INDIGO ROD referred by Dr. Zaida Land DO, with the diagnosis of NECK PAIN for a total of 10 visit(s). Discharge Date: 04/21/20 Please see the following information for a summary of their discharge status. Subjective: THIS PATIENT PRESENTS TO PT TODAY REPORTING SHE IS OUT OF SORTS DUE TO HER NIECE DEALING WITH A SERIOUS MEDICAL CONDITION. WANTS TO TRY TO PROCEED WITH SESSION THOUGH. PATIENT REPORTS SHE IS HAVING LESS PAIN AND MORE MOVEMENT IN HER NECK SINCE STARTING PT. IT HAS BEEN VERY HELPFUL. PATIENT REPORTS COMPLIANCE WITH HER HEP AND IT IS CHALLENGING BUT NOT TOO HARD. NECK Pain Intensity (Out of 10): 0 % Improvement: 50 Objective/Function: PATIENT WAS SEEN TODAY FOR RE-ASSESSMENT OF PROGRESS TOWARD THE SET PT GOALS AND THE NEED FOR FURTHER PHYSICAL THERAPY VS READINESS FOR DISCHARGE. UPON EXAM TODAY: ALL PT GOALS HAVE BEEN MET AND PATIENT IS INDEP WITH A HEP. Cervical Mvmt Loss: Flex: NIL. Pro: NIL. Ext: MOD. Ret: MOD. RSB: MOD. LSB: SIMON. R Rot: MOD TO SIMON BUT A LITTLE BETTER THAN AT EVAL. L Rot: MOD TO SIMON BUT A LITTLE BETTER THAN AT EVAL. PATIENT REPORTS TIGHTNESS AND DIFFICULTY WITH ROM TESTING BUT NO INCREASED PAIN WITH TESTING TODAY. Goal 1:: DECREASE C/O NECK PAIN Goal Progress: Goal Met Goal 2:: IMPROVE PERSONAL CARE, LIFTING, READING, HOUSEWORK, DRIVING AND RECREATIONAL FUNCTION. Goal Progress: Goal Met Goal 3:: INSTRUCT IN PROPHYLAXIS Goal Progress: Goal Met Plan: D/C TO INDEP HEP. PATIENT AGREEABLE If there are questions or concerns regarding this patient's physical therapy, please feel free to call me at [phone]. Thank you for the referral of this patient. Sincerely, Shonna Cabrera, PT, Cert MDT
== END 2020-04-21 19:00 | disposition home or self-care (01) ==
LOC: PT 12:30
PROVIDERS: PCP Family Medicine; Referring Provider Family Medicine; Visit Provider Family Medicine
DX: M54.2 Cervicalgia (principal)
CPT/HCPCS: 97035; 97110; 97162; 97164; 97530

== ENCOUNTER → 2020-09-15 11:31 | Outpatient (CLI) | payer MEDICARE, SELFPAY ==
[2020-09-15 15:02] LABS: Absolute Lymphocyte Count 1.58 X10^3/uL (0.83-4.51); Absolute Neutrophil Count 5.7 X10^3/uL (2.0-7.7); Basophil# 0.03 X10^3/uL; Basophil% 0.4 % (0-1); Eosinophils% 2.5 % (0-5); Hematocrit 39.5 % (37-47); Hemoglobin 12.7 g/dL (12.0-15.0); Lymphocyte # 1.58 X10^3/ul (0.83-4.51); Lymphocyte % 19.6 % (19-41); Mean Corp Hgb Conc 32.2 g/dL (32-36); Mean Corpuscular Hgb 27.8 pg (27.0-32.0); Mean Corpuscular Volume 86.4 fL (81-99); Mean Platelet Vol. 8.9 fl (6.2-12.0); Monocyte# 0.52 X10^3/uL; Monocyte% 6.5 % (0-10); NRBC Flagged by Analyzer 0 % (0-5); Neutrophil # 5.69 X10^3/uL (2.7-7.7); Neutrophil % 70.6 % (47-70); Platelet Count 274 K/mm3 (150-450); RBC Distribution Width CV 13.2 % (11.6-14.6); RBC Distribution Width SD 41.6 fl (35.1-43.9); Red Blood Count 4.57 M/mm3 (4.2-5.4); White Blood Count 8.1 K/mm3 (4.4-11.0)
[2020-09-15 15:21] LABS: ALB/GLOB Ratio 0.9 RATIO (0.9-2.4); AST(SGOT) 22 U/L (15-37); Alanine Aminotransfer ALT/SGPT 24 U/L (13-56); Albumin, Serum 3.6 g/dL (3.2-5.0); Alkaline Phosphatase 91 U/L (45-117); Anion Gap 4 (5-15); BUN 23 mg/dL (7-18); BUN/Creat Ratio 23.3 RATIO (10-20); Chloride 103 mmol/L (98-107); Cholesterol 172 mg/dL (200); Creatinine, Serum 0.99 mg/dL (0.55-1.02); EST Glomerular Filtration Rate 59 mL/min (>60); Est Glom Filt Rate - Afr Amer 71 mL/min (>60); Glucose 86 mg/dL (74-106); High Density Lipoprotein 57 mg/dL; Potassium 3.9 mmol/L (3.5-5.1); Protein, Total 7.6 g/dL (6.4-8.2); Sodium Level 137 mmol/L (136-145); Triglycerides 91 mg/dL; Very Low Density Lipoprotein 18 mg/dL (5-40)
[2020-09-15 15:25] LABS: Vitamin B12 1015 pg/mL (211-911); Vitamin D,25 Hydroxy 34.6 ng/mL
== END ==
PROVIDERS: PCP Family Medicine; Referring Provider Family Medicine; Visit Provider Family Medicine
DX: E78.00 Pure hypercholesterolemia, unspecified (principal); D64.9 Anemia, unspecified; E55.9 Vitamin D deficiency, unspecified; Z51.81 Encounter for therapeutic drug level monitoring
CPT/HCPCS: 36415; 80053; 80061; 82306; 82607; 85025

== ENCOUNTER → 2020-12-26 12:24 | Outpatient (CLI) | payer MEDICARE, SELFPAY ==
--- NOTE | 2020-12-26 12:26 | RAD_ITS ---
INDICATION: RULE OF FX 4TH/5TH METCARPALS AND DISTAL ULNA EXAMINATION/TECHNIQUE: X-RAY - LEFT XR Hand Min 3 Views 3 VIEWS COMPARISON: None. FINDINGS: SOFT TISSUES: No soft tissue swelling or gas. No radiopaque foreign body. BONES/JOINTS: No evidence of cortical irregularity subtle lucencies suggest a fracture. Unremarkable alignment of the metacarpal bones. Degenerative bone changes visualized with joint space narrowing seen most in the carpal bones along the lateral carpal bones where there is increased density along the articular surface and subchondral cysts visualized. Narrowing of the wrist joint space, no abnormal calcifications within the joint space. RAD/Hand Min 3 Views IMPRESSION: Degenerative changes, no acute osseous abnormality is seen Electronically Signed: Bharat Urbina MD at 14:26 EDT Tel , Service support ,
--- NOTE | 2020-12-26 12:26 | RAD_ITS ---
INDICATION: RULE OF FX 4TH/5TH METCARPALS AND DISTAL ULNA EXAMINATION/TECHNIQUE: X-RAY - LEFT XR Wrist Min 3 Views 3 VIEWS COMPARISON: 12/08/2019. FINDINGS: SOFT TISSUES: No soft tissue swelling or gas. No radiopaque foreign body. BONES/JOINTS: Narrowing of the joint spaces with increased density along the articular surface and subchondral cyst formation visualized in the carpal bones most prominent along the lateral breast bones, no evidence of cortical irregularity and lucency to suggest a fracture, unremarkable bone alignment is visualized. Narrowing of the wrist joint space is seen. Degenerative changes visualized most prominent in the first carpometacarpal joint. The visualized metacarpal bones demonstrate no evidence of fracture. RAD/Wrist min 3 Views IMPRESSION: Degenerative changes, no acute osseous abnormality is seen Electronically Signed: Bharat Urbina MD at 14:32 EDT Tel , Service support ,
== END ==
PROVIDERS: PCP Family Medicine; Referring Provider Family Medicine; Visit Provider Family Medicine
DX: S60.212A Contusion of left wrist, initial encounter (principal); M25.532 Pain in left wrist
CPT/HCPCS: 73110; 73130

== ENCOUNTER 2021-01-16 13:30 | Outpatient (RCR) | payer MEDICARE, SELFPAY ==
--- NOTE | 2020-11-07 15:07 | HP.PTEVAL_ITS ---
Patient's Visit Information INDIGO ROD is a 70 year old F referred to Physical Therapy by Dr. Zaida Land DO with a diagnosis of NECK PAIN. Date of Evaluation: 11/07/20 Physical Therapist: Shonna Cabrera PT, Cert MDT - Visit Plan Frequency: 2-3x /Week Duration: 4-6 Weeks Plan: AQUATIC THERAPY FOR PAIN RELIEF, POSTURE CORRECTION/STRENGTHENING, INSTRUCTION IN APPROPRIATE BODY MECHANICS AND ACTIVITY MODIFICATIONS. RODO UE ROM, STRETCHING AND STRENGTHENING. HEP INSTRUCTION. - Subjective Diagnosis: NECK PAIN. Present symptoms: CENTRAL NECK PAIN. PAIN RADIATES INTO SHOULDERS. NO TINGLING DOWN THE ARMS. Present since: ABOUT YEAR. Pain Scale: Worst - 8/10 Least - 3/10. Currently: 08/06. Commenced as a result of: NO APPARENT REASON. Symptoms at onset: SHOULDERS. Worse: LOOKING DOWN, LOOKING ANY DIRECTION OTHER THAN STRAIGHT AHEAD, TRYING TO TURN HEAD AND ESPECIALLY HURTS DRIVING. HARD TO TURN AROUND TO LOOK. Better: LYING DOWN. Disturbed sleep: NOT SURE BECAUSE BAD SLEEPER ANYWAY. Previous history/Prev ious treatment: PHYSICAL THERAPY - HEP. Dizziness: NO. Tinnitis: NO. Nausea: NO. Shortness of Breath: NO. Difficulty Swollowing: HAS BEEN CHOKING ON FOOD ABOUT 4 MONTHS OR LONGER - HAS NOT TOLD HER DOCTORS I FORGOT. DOES NOT HAPPEN EVERY DAY. CAUSES HER TO COUGH. STATES IT HAS BEEN A LITTLE BETTER. Gait: MY BALANCE IS GETTING A LITTLE WORSE. STATES SHE CAN'T LEAN ONE WAY OR THE OTHER WITHOUT USING SUPPORT LIKE TO PUT ON PANTS - HAS TO LEAN AGAINST SOMETHING. AFRAID SHE IS GOING TO FALL. PATIENT REPORTS SHE IS VERY CAREFUL. STATES SHE DOES NOT WANT TO USE A WALKER AND SHE WILL CONSIDER A CANE AT TIMES. Unexplained weight loss: NO. Imaging: NECK X-RAYS: STUDY: X-RAY - CERVICAL SPINE. REASON FOR EXAM: Female, 69 years old. NECK PAIN. TECHNIQUE: 5 view(s) of the cervical spine were obtained. COMPARISON: None. . FINDINGS: Normal anterior atlantoaxial articulation. Normal odontoid process. Normal cervical lordosis. There is multi-level endplate spondylosis. There is multi-level degenerative disc disease with multilevel disc space. narrowing. Normal visualized intervertebral neuroforamina. The soft tissue structures are unremarkable. . RAD/Cerv Spine 4 or 5 Views. IMPRESSION: Mild degenerative disc disease lower cervical spine appear. . Electronically Signed: Felton Ramirez MD. at 15:12 EST. PMH: 2014 MAJOR SPINAL FUSION. LEFT TKR 2011. RIGHT TKR 2017. HTN. BLADDER STIMULATOR NO SHLD SURGERIES. 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 PATIENT REPORTS SHE IS GETTING MORE BACK PAIN AND SEEMS TO BE GETTING MORE CROOKED. - Objective Sitting Posture/Standing Posture: POOR. Active Correction of posture: NE. Motor deficit: RODO UE STRENGTH GROSSLY 4-/5 WITH MMT'ING. HANDS NT. WEARING RIGHT THUMB SPLINT. H/O OCCUPATIONAL THERAPY WITH HEP. Sensory deficit: RODO UE LIGHT TOUCH SENSATION INTACT AND SYMMETRICAL. ROM deficit: RODO UE ROM WFL WITH SHLD'S GROSSLY 70%. Dural Signs: NEGATIVE RODO UE'S. Cervical Mvmt Loss: Flex: MIN. Pro: NIL. Ext: SIMON. Ret: SIMON. RSB: MOD TO SIMON. LSB: SIMON. R Rot: MOD. L Rot: MOD TO SIMON. PATIENT C/O INCREASED NECK PAIN WITH CERVICAL ROM TESTING ALL PLANES. Postural strength: POOR. Palpation: TENDERNESS AND INCREASED MUSCLE TONE OF CERIVAL REGIONS THROUGHOUT LOWER CERVICAL SPINE GREATER THAN UPPER. NO OCCIPUT TENDERNESS. TREATMENT: BRIEF NEUROMUSCULAR REEDUCATION - RETRAINING OF POSTURE IN SITTING. PATIENT REPORTED DECREASED PAIN IMMEDIATELY WITH USE OF SUPPORT IN LOW BACK. ENCOURAGED COMPLIANCE REGULARLY. PATIENT REPORTS SHE IS NOW IN THE HABBIT OF KEEPING PILLOWS AVAILABLE EVERYWHERE FOR LOW BACK - Goals Goal 1:: DECREASE C/O NECK PAIN Goal Time Frame: 4-6 Weeks Goal 2:: IMPROVE PERSONAL CARE, LIFTING, READING, SLEEPING, WORK, DRIVING AND RECREATIONAL FUNCTION. Goal Time Frame: 4-6 Weeks Goal 3:: INSTRUCT IN PROPHYLAXIS Goal Time Frame: 4-6 Weeks - Anticipated Interventions Patient/Client Instruction: Educate patient on: Condition, Plan of Care, Risk Factors For the Purpose of:: To improve self management Therapeutic Exercise to Include: Strength training, Body mechanics, Postural training, Flexibilty training, Neuromotor development, In an aquatic setting, Scapular Strength/Stabilization For the Purpose of:: To decrease pain, To increase ROM, To improve muscle performance and motor function, To increase tolerance to activity/condition/position, To improve ability of physical actions for home/community/work/leisure Thank you for the opportunity to evaluate your patient. For Medicare and Medicare HMO plans, please review the plan of care and approve it. It will need to be FAXED BACK to us at [phone] for Medicare purposes. For Medicare only, by signing this I certify the plan of care. Please let me know if there are questions or concerns regarding this plan of care. Physician Signature: Date:
--- NOTE | 2021-01-16 15:21 | HP.PTDCSUM_ITS ---
It has been my pleasure to treat INDIGO ROD referred by Dr. Zaida Land DO, with the diagnosis of NECK PAIN for a total of 10 visit(s). Discharge Date: Please see the following information for a summary of their discharge status. Subjective: PATIENT REPORTS SHE IS ABLE TO HOLD HER HEAD UP BETTER SINCE STARTING THERAPY. Neck Pain Intensity (Out of 10): 3 % Improvement: 25 Objective/Function: PATIENT WAS SEEN TODAY FOR RE-ASSESSMENT OF PROGRESS TOWARD THE SET PT GOALS AND THE NEED FOR FURTHER PHYSICAL THERAPY VS READINESS FOR DISCHARGE. PATIENT IS REPORTING ABOUT 25% IMPROVEMENT AND DEMO'S IMPROVED CERVICAL ROM PER BELOW. SHE IS INDEP WITH A HEP AND AGREEABLE TO CONTINUEING INDEP'LY WITH HEP AT THIS TIME. TRACTION WAS DISCUSSED. WE DO NOT CURRENTLY HAVE AN ORDER FOR TRACTION. PATIENT HAS OSTEOPENIA AND HAS NOT BEEN TESTED FOR OSTEOPOROSIS LATELY PER PATIENT REPORT. SHE PLANS TO DISCUSS POSSIBLY TRYING NECK TRACTION WITH HER PCP AND BACK SURGEON. UPON EXAM: Sensory deficit: RODO UE LIGHT TOUCH SENSATION INTACT AND SYMMETRICAL. ROM deficit: RODO UE ROM WFL WITH SHLD'S GROSSLY 70%. Dural Signs: NEGATIVE RODO UE'S. Cervical Mvmt Loss: Flex: NIL Pro: NIL. Ext: MOD Ret: SIMON BUT SOME MVMT VISIBLE. RSB: MOD TO SIMON. LSB: SIMON. R Rot: MOD. L Rot: MOD. PATIENT C/O INCREASED NECK PAIN WITH CERVICAL ROM TESTING ALL PLANES. Postural strength: POOR. Palpation: TENDERNESS AND INCREASED MUSCLE TONE OF CERIVAL REGIONS THROUGHOUT LOWER CERV ICAL SPINE GREATER THAN UPPER. NO OCCIPUT TENDERNESS. REVIEWED HOME INSTRUCTIONS AND FURTHER INSTRUCTION GIVEN FOR APPROPRIATE TECHNIQUE AND INTENSITY. PATIENT DEMONSTRATED/COMMUNICATED A GOOD UNDERSTANDING. Goal 1:: DECREASE C/O NECK PAIN Goal Progress: Goal Met Goal 2:: IMPROVE PERSONAL CARE, LIFTING, READING, SLEEPING, WORK, DRIVING AND RECREATIONAL FUNCTION. Goal Progress: Goal Met Goal 3:: INSTRUCT IN PROPHYLAXIS Goal Progress: Goal Met Plan: D/C TO HEP AND PHYSICIAN FOLLOW UP. PATIENT AGREEABLE. If there are questions or concerns regarding this patient's physical therapy, please feel free to call me at [phone]. Thank you for the referral of this patient. Sincerely, Shonna Cabrera, PT, Cert MDT Balance/Gait/Functional tests - Balance/Special Test Scores Oswestry Neck Score: 16
== END 2021-01-16 19:00 | disposition home or self-care (01) ==
LOC: PT 13:30
PROVIDERS: PCP Family Medicine; Referring Provider Family Medicine; Visit Provider Family Medicine
DX: M54.2 Cervicalgia (principal)
CPT/HCPCS: 97112; 97113; 97162; 97164

== ENCOUNTER → 2022-05-04 | Outpatient (CLI) | payer MEDICARE, SELFPAY ==
[2022-05-04 15:04] LABS: Absolute Lymphocyte Count 1.48 X10^3/uL (0.83-4.51); Absolute Neutrophil Count 5.7 X10^3/uL (2.0-7.7); Basophil# 0.03 X10^3/uL; Basophil% 0.4 % (0-1); Eosinophil# 0.27 X10^3/uL; Eosinophils% 3.4 % (0-5); Hematocrit 38.6 % (37-47); Hemoglobin 12.6 g/dL (12.0-15.0); Lymphocyte # 1.48 X10^3/ul (0.83-4.51); Lymphocyte % 18.6 % (19-41); Mean Corp Hgb Conc 32.6 g/dL (32-36); Mean Corpuscular Hgb 27.8 pg (27.0-32.0); Monocyte# 0.51 X10^3/uL; Monocyte% 6.4 % (0-10); NRBC Flagged by Analyzer 0 % (0-5); Neutrophil # 5.66 X10^3/uL (2.7-7.7); Neutrophil % 70.9 % (47-70); Platelet Count 260 K/mm3 (150-450); RBC Distribution Width CV 13.1 % (11.6-14.6); RBC Distribution Width SD 40.7 fl (35.1-43.9); Red Blood Count 4.54 M/mm3 (4.2-5.4)
[2022-05-04 15:35] LABS: ALB/GLOB Ratio 0.8 RATIO (0.9-2.4); AST(SGOT) 19 U/L (15-37); Alanine Aminotransfer ALT/SGPT 30 U/L (13-56); Albumin, Serum 3.4 g/dL (3.2-5.0); Alkaline Phosphatase 84 U/L (45-117); Anion Gap 8 (5-15); BUN 21 mg/dL (7-18); BUN/Creat Ratio 23.2 RATIO (10-20); Calcium,Total 8.8 mg/dL (8.5-10.1); Chloride 101 mmol/L (98-107); Cholesterol 150 mg/dL (200); EST Glomerular Filtration Rate 65 mL/min (>60); Est Glom Filt Rate - Afr Amer 78 mL/min (>60); Glucose 115 mg/dL (74-106); High Density Lipoprotein 49 mg/dL; Potassium 4.4 mmol/L (3.5-5.1); Protein, Total 7.4 g/dL (6.4-8.2); Sodium Level 139 mmol/L (136-145); Triglycerides 96 mg/dL; Very Low Density Lipoprotein 19 mg/dL (5-40); Vitamin B12 848 pg/mL (211-911); Vitamin D,25 Hydroxy 32.9 ng/mL
== END | disposition home or self-care (01) ==
LOC: BFHLAB 13:06
PROVIDERS: PCP Family Medicine; Visit Provider Family Medicine
DX: E78.00 Pure hypercholesterolemia, unspecified (principal); D64.9 Anemia, unspecified; E55.9 Vitamin D deficiency, unspecified; Z51.81 Encounter for therapeutic drug level monitoring
CPT/HCPCS: 36415; 80053; 80061; 82306; 82607; 85025

== ENCOUNTER 2022-05-18 13:30 | Outpatient (RCR) | payer MEDICARE, SELFPAY ==
--- NOTE | 2022-03-06 15:08 | HP.PTEVAL ---
Patient's Visit Information INDIGO ROD is a 71 year old F referred to Physical Therapy by Dr. Marv Ramey MD with a diagnosis of R TKA 11/28/17. Date of Evaluation: 03/06/22 Physical Therapist: Kendell Parra, PT, ATC - Visit Plan Frequency: 2-3x /Week Duration: 4-6 Weeks Plan: B LE strengthening, balance and proprio, core strengthening, gait training, stair negotiation, bike, and HEP - Subjective DOS: 11/28/2017. Pt reports she had a R TKA perfomed at that time. Pt reports she did recover from her surgery, but always remained a little sore and she was not able to bend her knee well. Pt reports on 10/29/21, she was attempting to remove a branch from a tree when she was thrown in the air and landed on her R knee. Pt notes she has had xrays which revealed her prosthetic is unharmed and still in place. Pt reports she will occasionally feel like something is slipping while she is attempting to ambulate. Pt reports she has a very difficult time with stair negotiation since her fall. Pt has to negotiate them one step at a time. Pt reports prolonged walking and standing is also very difficult. Pt reports she also feels very unbalanced since her fall. Pt reports occasional sleep difficulty secondary to pain. 1/10 sitting here in the clinic, 6/10 pain at worst (trying to negotiate stairs) - Pain R knee pain Pain Intensity (Out of 10): 1 Pain Intensity Range: 6 - Objective Neuro: B LE sensation is WNL to light touch. Girth at joint line: L knee 44 cm, R knee 46 cm. ROM: L knee 0-12-85; R knee 0-15-75 degrees. MMT: L knee flex= 23, ext= 18; R knee flex= 15, ext= 16 #F. Gait: Pt is able to ambulate approximately 680 feet until needing to rest secondary to pain - Balance/Special Test Scores Lower Extremity Functional Score: 21 - Goals Goal 1:: Decrease R knee pain x 50% to aid with sleep Goal Time Frame: 4-6 Weeks Goal 2:: Pt will be able to ambulate greater than 1000 feet to aid with community ambulation Goal Time Frame: 4-6 Weeks Goal 3:: Increase R knee strength x 5-10 #F to aid with stair negotiation Goal Time Frame: 4-6 Weeks Goal 4:: I with HEP - Rehabilitation Potential Physical Therapy Diagnosis: Pt has R knee pain, weakness, and decreased tolerance for ambulation secondary to R TKA Rehabilitation Potential: Good - Anticipated Interventions Patient/Client Instruction: Educate patient on: Condition, Plan of Care For the Purpose of:: To improve self management Therapeutic Exercise to Include: Strength training, Endurance training, Balance training, Flexibilty training, Gait and locomotor training, Active ROM, Dynamic Lumbar Stabilization For the Purpose of:: To decrease pain, To increase ROM, To improve muscle performance and motor function Cryotherapy (ice pack, ice massage): Yes For the Purpose of:: To decrease pain Thank you for the opportunity to evaluate your patient. For Medicare and Medicare HMO plans, please review the plan of care and approve it. It will need to be FAXED BACK to us at [phone] for Medicare purposes. For Medicare only, by signing this I certify the plan of care. Please let me know if there are questions or concerns regarding this plan of care. Physician Signature: Date:
--- NOTE | 2022-04-16 14:35 | HP.PTREVAL ---
Dr. Marv Ramey MD, It has been my pleasure to treat INDIGO ROD over the last 12 visits for R TKA 11/28/17. Please see the progress note below for an update on the physical therapy plan of care! Subjective: Pt reports she feels like she is 50 % improved. Pt reports one of her greatest concerns is her balance. She just about fell at the moviue theatre yesterday, and she still feels weak. Objective/Function: R knee pain ranges from 2-4/10. R knee MMT: flex= 29, ext= 25 #F. Gait: Pt is able to ambulate 680 feet until needing to rest secondary to fatigue. Pt is progressing well toward Rx goals Plan Plan: Continue with focus on R LE strengthening and balance activity Balance/Gait/Functional tests - Balance/Special Test Scores Lower Extremity Functional Score: 26 Goals Goal 1:: Decrease R knee pain x 50% to aid with sleep Goal Time Frame: 4-6 Weeks Goal Progress: Progressing Goal 2:: Pt will be able to ambulate greater than 1000 feet to aid with community ambulation Goal Time Frame: 4-6 Weeks Goal Progress: Progressing Goal 3:: Increase R knee strength x 5-10 #F to aid with stair negotiation Goal Time Frame: 4-6 Weeks Goal Progress: Progressing Goal 4:: I with HEP Goal Time Frame: 4-6 Weeks Goal Progress: Progressing Anticipated Interventions Patient/Client Instruction: Educate patient on: Condition, Plan of Care For the Purpose of:: To improve self management Therapeutic Exercise to Include: Strength training, Endurance training, Balance training, Flexibilty training, Gait and locomotor training, Active ROM, Dynamic Lumbar Stabilization For the Purpose of:: To decrease pain, To increase ROM, To improve muscle performance and motor function Cryotherapy (ice pack, ice massage): Yes For the Purpose of:: To decrease pain Please do not hesitate to contact me at [phone] by phone or if you have questions or concerns regarding this new plan of care! Sincerely, Kendell Parra, PT, ATC
--- NOTE | 2022-05-18 14:12 | HP.PTDCSUM ---
It has been my pleasure to treat INDIGO ROD referred by Dr. Marv Ramey MD, with the diagnosis of R TKA 11/28/17 for a total of 18 visit(s). Discharge Date: Please see the following information for a summary of their discharge status. Subjective: Only minor pain this date. R knee pain Pain Intensity (Out of 10): 1 % Improvement: 90 Objective/Function: R knee pain is consitently 05/08. R knee MMT: Flex and ext= 30 #F. Pt is able to ambulate 1000 feet without difficulty. Pt is I with HEP. Rx goals achieved Goal 1:: Decrease R knee pain x 50% to aid with sleep Goal Progress: Goal Met Goal 2:: Pt will be able to ambulate greater than 1000 feet to aid with community ambulation Goal Progress: Goal Met Goal 3:: Increase R knee strength x 5-10 #F to aid with stair negotiation Goal Progress: Goal Met Goal 4:: I with HEP Goal Progress: Goal Met Plan: Discharge to HEP If there are questions or concerns regarding this patient's physical therapy, please feel free to call me at [phone]. Thank you for the referral of this patient. Sincerely, Kendell Parra, PT, ATC Balance/Gait/Functional tests - Balance/Special Test Scores Lower Extremity Functional Score: 38
== END 2022-05-18 14:48 | disposition home or self-care (01) ==
LOC: PT 13:30
PROVIDERS: PCP Family Medicine; Referring Provider Orthopaedic Surgery; Visit Provider Orthopaedic Surgery
DX: R26.89 Other abnormalities of gait and mobility (principal)
CPT/HCPCS: 97110; 97161; 97164; 97530

== ENCOUNTER → 2022-06-08 | Outpatient (CLI) | payer MEDICARE, SELFPAY ==
--- NOTE | 2022-06-08 08:35 | RAD_ITS ---
STUDY: X-RAY - ESOPHAGUS (BARIUM SWALLOW) WITH FLUOROSCOPY REASON FOR EXAM: Female, 71 years old. DYSPHAGIA TECHNIQUE: 21 view(s) of the esophagus were obtained following swallowing of barium. FLUOROSCOPY TIME (if supplied): (35 seconds) minutes/seconds COMPARISON: None. FINDINGS: There is no demonstrated esophageal foreign body. There is no demonstrated stricture or mucosal abnormality. Normal gastroesophageal junction, without a demonstrated hiatal hernia. The patient ingested a 12 mm tablet of barium without any difficulty. There is atherosclerotic calcification of the aortic arch with tortuosity of the descending aorta. Normal visualized pulmonary parenchyma. Prior multilevel screw and meena fixation device of the lower thoracic and lumbar spines. RAD/Esophagus Dual Contrast IMPRESSION: Normal plain film x-ray examination (barium swallow) of the esophagus. Electronically Signed: Randal Ozuna MD at 10:15 EST ,
== END | disposition home or self-care (01) ==
LOC: RAD 08:26
PROVIDERS: PCP Family Medicine; Referring Provider Internal Medicine Gastroenterology; Visit Provider Internal Medicine Gastroenterology
DX: R13.10 Dysphagia, unspecified (principal)
CPT/HCPCS: 74221

== ENCOUNTER 2022-07-11 13:30 | Outpatient (RCR) | payer MEDICARE, SELFPAY ==
--- NOTE | 2022-05-21 14:46 | HP.PTEVAL_ITS ---
Patient's Visit Information INDIGO ROD is a 71 year old F referred to Physical Therapy by Dr. Zaida Land DO with a diagnosis of gait abnormality. Date of Evaluation: 05/21/22 Physical Therapist: Kevin Galicia DPT, OCS, CSCS - Visit Plan Frequency: 2x /Week Duration: 4-6 Weeks Plan: 2x/week for 4-6 weeks for... 1. Teach core exercises machines in gym to supplement current LE program. 2. weight shift FW and lateral, vestibular balance ex and VOR in bars and teach for I as safety allows. 3. Gait training with head turns, VOR and trasnfer off floor and out of chair with FW weight shift. Work to I with balance, core ex - Subjective Just finished therapy with R knee but fell this summer and had PT for pain and it really helped. Fell as she was pulling a branch off a tree and it gave. Feels like balance is not good, she loses it alot but she does not fall down. Not sure what the pattern is but it happens sometimes getting up out of chair or when turning corner. Or when she looks up and down. only happens standing or moving. No falls recently. Feeling in toes and feet is off sometimes, no DM diagnosis. No spinning. Retired. Does not sleep well but this is normal for her. Has restless leg syndrome and takes equip. Lives with in one story with 3 steps to enter with railing and is no problem. H/O back surgery and knee surgery. Basic ADLs are getting done, balance not an issue here. Hobbies include painting. No regular ex but has started back recently since covashtyn. Doing machines for strengthening. - Objective Walks with short steps and hesitant but I. Transfers I from chair with UE, unable without due to lacking FW weight shift. Steps is recprocal with one rail pulling. LB AROM mod limited in all directions and hesitant to shift weight. HS max tight at -50 90/90 B. quads min tight(knee ROM limits testing as she can only get to 90 -95 B knee flexion). hip AROM WFL, knee 0-90, very tight HS. ankles WFL, gastroc mod tight. reflexes 0/3 patella and achilles. Sensation LE WNL to gross light touch B LE. coordination to reciprocal toe tap is WFL - Balance/Special Test Scores Functional Gait Assessment Score: 25 % Disability: 16.6700 CATSIB Score (Max score 120 seconds): 100 Lower Extremity Functional Score: 29 - Goals Goal 1:: Get out of chair without UE Goal Time Frame: 4-6 Weeks Goal 2:: get off floor with support easily Goal Time Frame: 4-6 Weeks Goal 3:: FGA Goal Time Frame: 4-6 Weeks Goal 4:: I appropriate HEP to limit future problems(core in gym, weight shift and vest balance ex) Goal Time Frame: 4-6 Weeks Goal 5:: 45 LEFS score Goal Time Frame: 4-6 Weeks - Rehabilitation Potential Physical Therapy Diagnosis: imbalance due to lack of FW weight shift, flexibility deficits and core weakness/confidence problem Rehabilitation Potential: Fair - Anticipated Interventions Patient/Client Instruction: Educate patient on: Condition, Plan of Care For the Purpose of:: To improve gait and locomotor functions, To improve safety Therapeutic Exercise to Include: Strength training, Balance training, Postural t raining, Flexibilty training For the Purpose of:: To improve muscle performance and motor function, To increase tolerance to activity/condition/position, To improve ability of physical actions for home/community/work/leisure, To improve gait and locomotor functions, To improve health of tissue, To improve safety Thank you for the opportunity to evaluate your patient. For Medicare and Medicare HMO plans, please review the plan of care and approve it. It will need to be FAXED BACK to us at [phone] for Medicare purposes. For Medicare only, by signing this I certify the plan of care. Please let me know if there are questions or concerns regarding this plan of care. Physician Signature: __Date:
--- NOTE | 2022-07-11 14:24 | HP.PTDCSUM ---
It has been my pleasure to treat INDIGO ROD referred by Dr. Zaida Land DO, with the diagnosis of gait abnormality for a total of 15 visit(s). Discharge Date: 07/11/22 Please see the following information for a summary of their discharge status. Subjective: I have improved. Walking better adn safer and turning. Not falling into wall. Doing exercises at home regularly. LB Pain Intensity (Out of 10): 0 % Improvement: 80 Objective/Function: Kn ee ROM limits transition off floor making it min A and many VC with support. Chair transfer is I without UE. FGA is good. Walking well and very pleased with progress and exercises. Goal 1:: Get out of chair without UE Goal Progress: Goal Met Goal 2:: get off floor with support easily Goal Progress: Min A needed Goal 3:: FGA Goal Progress: 25 Goal 4:: I appropriate HEP to limit future problems(core in gym, weight shift and vest balance ex) Goal Progress: Goal Met Goal 5:: 45 LEFS score Goal Progress: Progressing Plan: d/c to HEP Discharge Comments: Will continue via HEP If there are questions or concerns regarding this patient's physical therapy, please feel free to call me at [phone]. Thank you for the referral of this patient. Sincerely, Kevin Galicia, DPT, OCS, CSCS Balance/Gait/Functional tests - Balance/Special Test Scores Functional Gait Assessment Score: 25 % Disability: 16.6700 CATSIB Score (Max score 120 seconds): 100 Lower Extremity Functional Score: 41
== END 2022-07-11 14:29 | disposition home or self-care (01) ==
LOC: PT 13:30
PROVIDERS: PCP Family Medicine; Referring Provider Family Medicine; Visit Provider Family Medicine
DX: R26.89 Other abnormalities of gait and mobility (principal)
CPT/HCPCS: 97110; 97162; 97164; 97530

== ENCOUNTER → 2022-08-06 | Outpatient (CLI) | payer MEDICARE, SELFPAY ==
--- NOTE | 2022-08-06 12:40 | RAD_ITS ---
STUDY: X-RAY CHEST REASON FOR EXAM: Female, 71 years old. COUGH TECHNIQUE: PA and lateral views of the chest. COMPARISON: 07/25/2017 FINDINGS: The lungs are clear and expanded. There is no demonstrated pleural abnormality. Normal size heart. Normal mediastinum and sree. Normal visualized pulmonary arteries. There is atherosclerotic calcification of the aortic arch with tortuosity. There are diffuse degenerative changes of the visualized thoracic spine. Normal visualized ribs, clavicles, and shoulders. Surgical hardware in the lumbar spine free of complication There is no demonstrated abnormality of the visualized soft tissue structures of the upper abdomen. RAD/Chest PA and Lateral IMPRESSION: No acute pulmonary process Electronically Signed: Douglas James MD at 12:54 EDT ,
== END | disposition home or self-care (01) ==
PROVIDERS: PCP Family Medicine; Referring Provider Family Medicine; Visit Provider Family Medicine
DX: R05.9 Cough, unspecified (principal)
CPT/HCPCS: 71046

== ENCOUNTER → 2022-12-24 | Outpatient (CLI) | payer MEDICARE, SELFPAY ==
[2022-12-24 12:06] LABS: Absolute Lymphocyte Count 1.49 X10^3/uL (0.83-4.51); Absolute Neutrophil Count 4.5 X10^3/uL (2.0-7.7); Basophil# 0.03 X10^3/uL; Basophil% 0.5 % (0-1); Eosinophil# 0.17 X10^3/uL; Eosinophils% 2.6 % (0-5); Hematocrit 39.9 % (37-47); Hemoglobin 12.6 g/dL (12.0-15.0); Lymphocyte # 1.49 X10^3/ul (0.83-4.51); Lymphocyte % 22.4 % (19-41); Mean Corp Hgb Conc 31.6 g/dL (32-36); Mean Corpuscular Hgb 27.8 pg (27.0-32.0); Mean Corpuscular Volume 88.1 fL (81-99); Mean Platelet Vol. 8.9 fl (6.2-12.0); Monocyte# 0.47 X10^3/uL; Monocyte% 7.1 % (0-10); NRBC Flagged by Analyzer 0 % (0-5); Neutrophil # 4.47 X10^3/uL (2.7-7.7); Neutrophil % 66.9 % (47-70); Platelet Count 243 K/mm3 (150-450); RBC Distribution Width CV 12.9 % (11.6-14.6); RBC Distribution Width SD 41.1 fl (35.1-43.9); Red Blood Count 4.53 M/mm3 (4.2-5.4); White Blood Count 6.7 K/mm3 (4.4-11.0)
[2022-12-24 12:54] LABS: Vitamin B12 1015 pg/mL (211-911); Vitamin D,25 Hydroxy 26.9 ng/mL
[2022-12-24 12:58] LABS: ALB/GLOB Ratio 0.8 RATIO (0.9-2.4); AST(SGOT) 27 U/L (15-37); Alanine Aminotransfer ALT/SGPT 31 U/L (13-56); Albumin, Serum 3.3 g/dL (3.2-5.0); Alkaline Phosphatase 86 U/L (45-117); Anion Gap 4 (5-15); BUN 19 mg/dL (7-18); BUN/Creat Ratio 21.3 RATIO (10-20); Calcium,Total 8.7 mg/dL (8.5-10.1); Chloride 104 mmol/L (98-107); Creatinine, Serum 0.89 mg/dL (0.55-1.02); EST Glomerular Filtration Rate 66 mL/min (>60); Est Glom Filt Rate - Afr Amer 80 mL/min (>60); Free T3 2.6 pg/mL (2.18-3.98); Globulin 3.9 g/dL (2.2-4.2); Glucose 106 mg/dL (74-106); Protein, Total 7.2 g/dL (6.4-8.2); Sodium Level 137 mmol/L (136-145); T4 Free Direct 0.84 ng/dL (0.76-1.46); Thyroid Stim Hormone (TSH) 3.23 uIU/mL (0.358-3.74)
[2022-12-24 13:25] LABS: Hemoglobin A1c 5.9 % (3.8-5.6)
== END | disposition home or self-care (01) ==
PROVIDERS: PCP Family Medicine; Referring Provider Family Medicine; Visit Provider Family Medicine
DX: E03.9 Hypothyroidism, unspecified (principal); D64.9 Anemia, unspecified; E55.9 Vitamin D deficiency, unspecified; R73.01 Impaired fasting glucose; Z51.81 Encounter for therapeutic drug level monitoring
CPT/HCPCS: 36415; 80053; 82306; 82607; 83036; 84439; 84443; 84481; 85025

== ENCOUNTER → 2023-06-25 | Outpatient (CLI) | payer MEDICARE, SELFPAY ==
[2023-06-25 15:27] LABS: Absolute Lymphocyte Count 1.57 X10^3/uL (0.83-4.51); Absolute Neutrophil Count 5.2 X10^3/uL (2.0-7.7); Basophil# 0.03 X10^3/uL; Basophil% 0.4 % (0-1); Eosinophil# 0.17 X10^3/uL; Eosinophils% 2.3 % (0-5); Hematocrit 41.4 % (37-47); Hemoglobin 13.1 g/dL (12.0-15.0); Lymphocyte # 1.57 X10^3/ul (0.83-4.51); Mean Corp Hgb Conc 31.6 g/dL (32-36); Mean Corpuscular Hgb 27.9 pg (27.0-32.0); Mean Corpuscular Volume 88.3 fL (81-99); Mean Platelet Vol. 8.7 fl (6.2-12.0); Monocyte# 0.49 X10^3/uL; Monocyte% 6.5 % (0-10); NRBC Flagged by Analyzer 0 % (0-5); Neutrophil % 69.4 % (47-70); Platelet Count 245 K/mm3 (150-450); RBC Distribution Width CV 12.9 % (11.6-14.6); RBC Distribution Width SD 41.4 fl (35.1-43.9); Red Blood Count 4.69 M/mm3 (4.2-5.4); White Blood Count 7.5 K/mm3 (4.4-11.0)
[2023-06-25 16:10] LABS: Vitamin B12 1025 pg/mL (211-911); Vitamin D,25 Hydroxy 32.8 ng/mL
[2023-06-25 16:40] LABS: ALB/GLOB Ratio 0.9 RATIO (0.9-2.4); AST(SGOT) 23 U/L (15-37); Alanine Aminotransfer ALT/SGPT 28 U/L (13-56); Albumin, Serum 3.6 g/dL (3.2-5.0); Alkaline Phosphatase 86 U/L (45-117); Anion Gap 6 (5-15); BUN 17 mg/dL (7-18); BUN/Creat Ratio 18.1 RATIO (10-20); Calcium,Total 8.8 mg/dL (8.5-10.1); Chloride 102 mmol/L (98-107); Creatinine, Serum 0.94 mg/dL (0.55-1.02); EST Glomerular Filtration Rate 62 mL/min (>60); Est Glom Filt Rate - Afr Amer 75 mL/min (>60); Globulin 3.9 g/dL (2.2-4.2); Glucose 101 mg/dL (74-106); Potassium 3.8 mmol/L (3.5-5.1); Protein, Total 7.5 g/dL (6.4-8.2); Sodium Level 136 mmol/L (136-145); Thyroid Stim Hormone (TSH) 2.88 uIU/mL (0.358-3.74)
== END | disposition home or self-care (01) ==
LOC: BFHLAB 13:30
PROVIDERS: PCP Family Medicine; Visit Provider Family Medicine
DX: D64.9 Anemia, unspecified (principal); I10 Essential (primary) hypertension; R53.83 Other fatigue; E55.9 Vitamin D deficiency, unspecified; R73.01 Impaired fasting glucose
CPT/HCPCS: 36415; 80053; 82306; 82607; 83036; 84443; 85025

== ENCOUNTER → 2023-10-03 | Outpatient (CLI) | payer MEDICARE, SELFPAY ==
--- NOTE | 2023-10-03 16:50 | RAD_ITS ---
STUDY: X-RAY - LUMBAR SPINE REASON FOR EXAM: Female, 73 years old. LOW BACK PAIN TECHNIQUE: 4 view(s) of the lumbar spine were obtained. COMPARISON: None FINDINGS: Status post surgical fusion from T10 through S2 . Slightly exaggerated lumbar lordosis. Grade 1 spondylolisthesis at L5-S1 Normal vertebral bodies and endplates. Slightly narrowed disc space heights. The soft tissue structures are unremarkable. RAD/L/S Spine Min 4 Views IMPRESSION: Degenerative changes of the lumbar spine with fusion as noted. Electronically Signed: Ugo Luis DO at 23:55 EDT ,
== END | disposition home or self-care (01) ==
LOC: MTRAD 16:46
PROVIDERS: PCP Family Medicine; Referring Provider Family Medicine; Visit Provider Family Medicine
DX: M54.50 Low back pain, unspecified (principal)
CPT/HCPCS: 72110

== ENCOUNTER → 2023-12-25 | Outpatient (CLI) | payer MEDICARE, SELFPAY ==
[2023-12-25 12:37] LABS: Absolute Lymphocyte Count 1.44 X10^3/uL (0.83-4.51); Absolute Neutrophil Count 4.6 X10^3/uL (2.0-7.7); Basophil# 0.03 X10^3/uL; Basophil% 0.4 % (0-1); Eosinophil# 0.21 X10^3/uL; Eosinophils% 3.1 % (0-5); Hematocrit 39.2 % (37-47); Hemoglobin 12.4 g/dL (12.0-15.0); Lymphocyte # 1.44 X10^3/ul (0.83-4.51); Lymphocyte % 21.2 % (19-41); Mean Corp Hgb Conc 31.6 g/dL (32-36); Mean Corpuscular Hgb 27.4 pg (27.0-32.0); Mean Corpuscular Volume 86.5 fL (81-99); Monocyte# 0.47 X10^3/uL; Monocyte% 6.9 % (0-10); NRBC Flagged by Analyzer 0 % (0-5); Neutrophil # 4.63 X10^3/uL (2.7-7.7); Neutrophil % 68.1 % (47-70); Platelet Count 256 K/mm3 (150-450); RBC Distribution Width SD 41.1 fl (35.1-43.9); Red Blood Count 4.53 M/mm3 (4.2-5.4); White Blood Count 6.8 K/mm3 (4.4-11.0)
[2023-12-25 12:49] LABS: Vitamin B12 830 pg/mL (211-911); Vitamin D,25 Hydroxy 31.8 ng/mL
[2023-12-25 13:16] LABS: ALB/GLOB Ratio 0.9 RATIO (0.9-2.4); AST(SGOT) 24 U/L (15-37); Alanine Aminotransfer ALT/SGPT 24 U/L (13-56); Albumin, Serum 3.5 g/dL (3.2-5.0); Alkaline Phosphatase 102 U/L (45-117); Anion Gap 5 (5-15); BUN 28 mg/dL (7-18); BUN/Creat Ratio 32.1 RATIO (10-20); Chloride 103 mmol/L (98-107); Cholesterol 164 mg/dL (200); Creatinine, Serum 0.87 mg/dL (0.55-1.02); EST Glomerular Filtration Rate 67 mL/min (>60); Est Glom Filt Rate - Afr Amer 81 mL/min (>60); Free T3 2.3 pg/mL (2.18-3.98); Glucose 134 mg/dL (74-106); High Density Lipoprotein 53 mg/dL; Potassium 4.1 mmol/L (3.5-5.1); Protein, Total 7.5 g/dL (6.4-8.2); Sodium Level 136 mmol/L (136-145); T4 Free Direct 0.87 ng/dL (0.76-1.46); Triglycerides 114 mg/dL; Very Low Density Lipoprotein 23 mg/dL (5-40)
[2023-12-25 16:16] LABS: Hemoglobin A1c 6.1 % (3.8-5.6)
== END | disposition home or self-care (01) ==
LOC: BFHLAB 09:38
PROVIDERS: PCP Family Medicine; Visit Provider Family Medicine
DX: E03.9 Hypothyroidism, unspecified (principal); D64.9 Anemia, unspecified; E55.9 Vitamin D deficiency, unspecified; R73.01 Impaired fasting glucose; E78.5 Hyperlipidemia, unspecified; Z51.81 Encounter for therapeutic drug level monitoring
CPT/HCPCS: 36415; 80053; 80061; 82306; 82607; 83036; 84439; 84443; 84481; 85025

== ENCOUNTER 2024-07-07 14:00 | Outpatient (RCR) | payer MEDICARE, SELFPAY ==
--- NOTE | 2024-01-31 07:53 | HP.PTEVAL_ITS ---
Patient's Visit Information Visit Information Visit Information: INDIGO ROD is a 73 year old F referred to Physical Therapy by Dr. Zaida Land DO with a diagnosis of LOW BACK PAIN AND L SCIATICA. Date of Evaluation: 01/27/24 Physical Therapist: Shonna Cabrera PT, Cert MDT Visit Plan Frequency: 2x /Week Duration: 6-8 WKS Plan: *NEUTRAL SPINE ONLY. NO BENDING OR TWISTING* AQUATIC THERAPY FOR DLS WITH A NEUTRAL SPINE. POSTURE STRENGTHENING. GAIT AND BALANCE TRAINING. RODO LE ROM, STRETCHING AND STRENGTHEING INCLUDING HIPS, KNEES AND ANKLES ALL PLANES TOLERATED. Subjective Subjective: Work/Leisure: RETIRED Present symptoms: RODO LOW BACK PAIN AND ELECTRICAL BUZZING IN RODO HIPS. PATIENT REPORTS DECREASED FLEXIBILITY, STRENGTH AND BALANCE FROM BEING immobile from back injury x 2 months (September and October). SHE REPORTS SHE HAS BEEN TRYING TO GET HER STRENGTH BACK BUT SHE IS AFRAID OF HURTING HERSELF. Present since: AUGUST 2023 Pain Scale: WORST 8/10, LEAST 3/10 Currently: 4/10 Is it getting better, worse or staying the same: STAYING THE SAME Commenced as a result of: BARELY BENDING - NO APPARENT REASON Symptoms at onset: FELT AND HEARD A VERY LOAD POP IN BACK AND FELT SEVERE LEFT LOW BACK PAIN Worse: STANDING, WALKING, BENDING, TRYING TO LIFT ANYTHING, EVERYTHING Better: LYING DOWN Disturbed sleep: YES Previous history/Previous treatment: PHYSICAL THERAPY MULTIPLE TIMES, ONE BACK SURGERY WITH ROBBI PLACEMENT AND 23 SCREWS - 2014. NO TREATMENT OTHER THAN PHYSICAL THERAPY SINCE BACK SURGERY. Treatment this episode: REST ONLY SINCE THIS FLARE UP IN AUGUST 2022. Coughing/sneezing/straining: POSITIVE FOR INCREASED PAIN - A LITTLE BIT. Gait: WALKING WITHOUT AD BUT SLOWER AND MORE GUARDED THAN NORMAL. ALSO LESS TIME AND DISTANCE. I HAVEN'T BEEN DOING MUCH WALKING. 3 WEEKS AGO MY SANDLE CAUGHT ON THE PATIO STEP AND I FELL FORWARD. SHE STATES SHE FELL FORWARD AND LANDED ON HER CHEST. SHE DENIES ANY INJURY AND STATES SHE WAS REALLY SURPRISED IT DIDN'T INCREASE HER BACK PAIN. SHE DENIES NEEDED TO SEE A DOCTOR AFTER THE FALL. Bowel or Bladder Dysfunction: PATIENT REPORTS SHE GETS TREATMENT FOR HER BLADDER SO THAT SHE IS NOT INCONTINENT. DENEIS BOWEL INCONTINENCE. Unexplained weight loss: NO Imaging: BACK X-RAYS IN SEPTEMBER [address] STODDARD DID NOT SEE ANYTHING TO INDICATE FX. PMH/Recent major surgery: SEE BELOW. L TKR 3013, R TKR 2018 Objective Objective: THIS PATIENT AMBULATES INDEP'LY INTO PT WITHOUT ANY ASSISTIVE DEVICES WITH VERY TENTATIVE GAIT. SHE WALKS WITH DECREASED CADANCE AND SHORT RODO STRIDE LENGTH. SHE ALSO EXHIBITS DECREASED RODO ARM SWING AND TRUNK ROTATION IS ALMOST NON existent. SHE IS ABLE TO TANDEM WALK WITH LIGHT ONE UE ASSIST. SLS X 4 S R LE AND SLS X 10 S L LE WITHOUT UE ASSIST. Sensory deficit: RODO LE'S GROSSLY INTACT AND SYMMETRICAL ROM deficit: DECREASED RODO KNEE ROM. ~ 10-0-110 FLEX RODO KNEES. Motor deficit: RODO LE'S GROSS 4-/5 IN MID-RANGE WITH MMT'ING. Dural Signs: NEGATIVE RODO LE'S. Lumbar mvmt loss: PATIENT HAS MAJOR LUMBAR AND THORACIC MVMT LOSS ALL PLANES AND ROM ATTEMPS INCREASE PAIN. Core strength: POOR Palpation: PATIENT REPORTS A NUMBNESS AROUND HER LUMBAR/SACRAL REGION THAT IS CHRONIC. TUG TIME: 19.98 SEC WITHOUT AD. 30 STS: 4 Balance/Special Test Scores Oswestry Low Back Score: 18 Goals Goal 1:: DECREASE C/O INCREASE IN BACK PAIN FROM NEW EPISODE OF PAIN BY AT LEAST 50% TO EASE ADL'S AND HELP PATIENT RETURN TO PLOF Goal Time Frame: 8-12 Weeks Goal 2:: IMPROVE ADL, WALKING, SITTING, STANDING, HOMEMAKING AND SOCIAL LIFE/RECREATIONAL FUNCTION Goal Time Frame: 8-12 Weeks Goal 3:: INSTRUCT IN PROPHYLAXIS/INDEP HOME AND/OR WATER EX PROGRAM Goal Time Frame: 8-12 Weeks Rehabilitation Potential Physical Therapy Diagnosis: THIS PATIENT PRESENTS TO PT WITH BACK STIFFNESS, CORE WEAKNESS, LE STIFFNESS, LE WEAKNESS AND DIFFICULTY WALKING. Rehabilitation Potential: Good Anticipated Interventions Patient/Client Instruction: Educate patient on: Condition, Plan of Care and Risk Factors For the Purpose of:: To improve self management Therapeutic Exercise to Include: Strength training, Balance training, Body mechanics, Postural training, Flexibilty training, Gait and locomotor training, Neuromotor development, In an aquatic setting, Active ROM and Dynamic Lumbar Stabilization For the Purpose of:: To decrease pain, To increase ROM, To improve muscle performance and motor function, To increase tolerance to ac tivity/condition/position, To improve ability of physical actions for home/community/work/leisure, To improve gait and locomotor functions, To increase flexibility/ROM, To improve safety with gait and To improve self management Text: Thank you for the opportunity to evaluate your patient. For Medicare and Medicare HMO plans, please review the plan of care and approve it. It will need to be FAXED BACK to us at [phone] for Medicare purposes. For Medicare only, by signing this I certify the plan of care. Please let me know if there are questions or concerns regarding this plan of care. Physician Signature: Date:
--- NOTE | 2024-02-26 14:10 | HP.PTREVAL_ITS ---
Re-Evaluation Intro: Dr. Zaida Land, DO, It has been my pleasure to treat INDIGO ROD over the last 10 visits for LOW BACK PAIN AND L SCIATICA. Please see the progress note below for an update on the physical therapy plan of care! Subjective Subjective: PATIENT REPORTS SHE IS FEELING STRONGER AND LESS TIGHT. SHE REPORTS SHE IS FEELING BETTER AND THE EX'S SHE DOES AT HOME ARE GOING BETTER/LESS PAINFUL. SHE REPORTS SHE CAN WALK FURTHER AND SHE IS HAPPY. I WAS ABLE TO WALK TO [place] THE OTHER DAY. PATIENT REPORTS SHE WAS ACTUALLY PAINFREE FOR TWO HOURS AFTER ONE OF HER POOL SESSIONS AND SHE IS NEVER PAINFREE. PATIENT REPORTS SHE IS LOOKED INTO GETTING A MEMBERSHIP AT [employer] TO USE THEIR POOL AFTER THERAPY CONCLUDES TO CONTINUE EX ON HER OWN. Objective Objective/Function: PATIENT WAS SEEN TODAY FOR RE-ASSESSMENT OF PROGRESS TOWARD THE SET PT GOALS AND THE NEED FOR FURTHER PHYSICAL THERAPY VS READINESS FOR DISCHARGE. THIS PATIENT IS A GOOD CANDIDATE TO CONTINUE PT BASED ON PROGRESS MADE AND ROOM FOR FURTHER IMPROVEMENT. PATIENT IS AGREEABLE AND LOOKING FORWARD TO CONTINUING. TUG TIME: 16.15 SEC WITHOUT AD. 30 STS: 7 WITH RODO UE ASSIST SLS X 10 S R LE AND SLS X 20 S L LE WITHOUT UE ASSIST. Plan Plan Plan: 2X'S A WK X 10 TO 12 VISITS. *NEUTRAL SPINE ONLY. NO BENDING OR TWISTING* AQUATIC THERAPY FOR DLS WITH A NEUTRAL SPINE. POSTURE STRENGTHENING. GAIT AND BALANCE TRAINING. RODO LE ROM, STRETCHING AND STRENGTHEING INCLUDING HIPS, KNEES AND ANKLES ALL PLANES TOLERATED. Balance/Gait/Functional tests Balance/Special Test Scores Oswestry Low Back Score: 20 Goals Goals Goal 1:: DECREASE C/O INCREASE IN BACK PAIN FROM NEW EPISODE OF PAIN BY AT LEAST 50% TO EASE ADL'S AND HELP PATIENT RETURN TO PLOF Goal Time Frame: 8-12 Weeks Goal Progress: Progressing Goal 2:: IMPROVE ADL, WALKING, SITTING, STANDING, HOMEMAKING AND SOCIAL LIFE/RECREATIONAL FUNCTION Goal Time Frame: 8-12 Weeks Goal Progress: Progressing Goal 3:: INSTRUCT IN PROPHYLAXIS/INDEP HOME AND/OR WATER EX PROGRAM Goal Time Frame: 8-12 Weeks Goal Progress: Progressing Anticipated Interventions Anticipated Interventions Patient/Client Instruction: Educate patient on: Condition, Plan of Care and Risk Factors For the Purpose of:: To improve self management Therapeutic Exercise to Include: Strength training, Balance training, Body mechanics, Postural training, Flexibilty training, Gait and locomotor training, Neuromotor development, In an aquatic setting, Active ROM and Dynamic Lumbar Stabilization For the Purpose of:: To decrease pain, To increase ROM, To improve muscle performance and motor function, To increase tolerance to activity/con dition/position, To improve ability of physical actions for home/community/work/leisure, To improve gait and locomotor functions, To increase flexibility/ROM, To improve safety with gait and To improve self management Re-Evaluation Ending Re-evaluation ending: Please do not hesitate to contact me at [phone] by phone or Fax: if you have questions or concerns regarding this new plan of care! Sincerely, Shonna Cabrera, PT, Cert MDT
--- NOTE | 2024-06-17 14:08 | HP.PTREVAL_ITS ---
Re-Evaluation Intro: Dr. Zaida Land, DO, It has been my pleasure to treat INDIGO ROD over the last 19 visits for LOW BACK PAIN AND L SCIATICA. Please see the progress note below for an update on the physical therapy plan of care! Subjective Subjective: PATIENT REPORTS SHE HAD COVID BUT SHE IS BETTER NOW AND READY TO RESUME AQUATIC THERAPY. LOW BACK PAIN HAS BEEN RANGING 3 TO 6/10. SHE REPORTS SHE HAS BEEN HAVING LESS LBP AND SHE RELATES THAT TO BEING LESS ACTIVE FROM HAVING COVID. STARTED TREADMILL AT 1.5 TO 1.8 MPH RECENTLY AND TRYING TO BUILD UP TO ABOUT 20 MINUTTES BUT INCREASES HER PAIN. Objective Objective/Function: PATIENT WAS SEEN TODAY FOR RE-ASSESSMENT. TESTING TODAY SHOWS REGRESSION COMPARED TO LAST RE-CHECK BUT NOT BACK TO LEVEL MEASURED AT [facility]. SHE IS A GOOD CANDIDATE TO RESUME AQUATIC THERAPY. UPON EXAM TODAY: THIS PATIENT AMBULATES INDEP'LY INTO PT WITHOUT ANY AD'S WITH DECREASED CADANCE WITH A SHUFFLE TYPE GAIT PATTERN. SHE WALKES WITH DECREASED RODO STRIDE LENGTH NOT OR BARELY PASSING THE OPPOSITE FOOT WITH EACH STEP AND ESSENTIALLY NO HEEL STRIKE OR TOE OFF PHASES OF GAIT. SHE HAS TRUNK AND RODO LE GUARDING AND TIGHTNESS THROUGHOUT. TUG TIME: 17.95 SEC WITHOUT AD. 30 STS: 6 WITH RODO UE ASSIST SLS X 6 S R LE AND SLS X 10 S L LE WITHOUT UE ASSIST. Plan Plan Plan: 2X'S A WK X 10 TO 12 VISITS. *NEUTRAL SPINE ONLY. NO BENDING OR TWISTING* AQUATIC THERAPY FOR DLS WITH A NEUTRAL SPINE. POSTURE STRENGTHENING. GAIT AND BALANCE TRAINING. RODO LE ROM, STRETCHING AND STRENGTHEING INCLUDING HIPS, KNEES AND ANKLES ALL PLANES TOLERATED. Balance/Gait/Functional tests Balance/Special Test Scores Oswestry Low Back Score: 20 Goals Goals Goal 1:: DECREASE C/O INCREASE IN BACK PAIN FROM NEW EPISODE OF PAIN BY AT LEAST 50% TO EASE ADL'S AND HELP PATIENT RETURN TO PLOF Goal Time Frame: 8-12 Weeks Goal Progress: Progressing Goal 2:: IMPROVE ADL, WALKING, SITTING, STANDING, HOMEMAKING AND SOCIAL LIFE/RECREATIONAL FUNCTION Goal Time Frame: 8-12 Weeks Goal Progress: Progressing Goal 3:: INSTRUCT IN PROPHYLAXIS/INDEP HOME AND/OR WATER EX PROGRAM Goal Time Frame: 8-12 Weeks Goal Progress: Progressing Anticipated Interventions Anticipated Interventions Patient/Client Instruction: Educate patient on: Condition, Plan of Care and Risk Factors For the Purpose of:: To improve self management Therapeutic Exercise to Include: Strength training, Balance training, Body mechanics, Postural training, Flexibilty training, Gait and locomotor training, Neuromotor development, In an aquatic setting, Active ROM and Dynamic Lumbar Stabilization For the Purpose of:: To decrease pain, To increase ROM, To improve muscle performance and motor function, To increase tolerance to activity/condition/position, To improve ability of physical actions for home/community/work/leisure, To improve gait and locomotor functions, To increase flexibility/ROM, To improve safety with gait and To improve self management Re-Evaluation Ending Re-evaluation ending: Please do not hesitate to contact me at [phone] by phone or if you have questions or concerns regarding this new plan of care! Sincerely, Shonna Cabrera, PT, Cert MDT
== END 2024-07-07 19:00 | disposition home or self-care (01) ==
LOC: PT 14:00
PROVIDERS: PCP Family Medicine; Referring Provider Family Medicine; Visit Provider Family Medicine
DX: M54.32 Sciatica, left side (principal); G89.29 Other chronic pain
CPT/HCPCS: 97113; 97162; 97530

== ENCOUNTER → 2024-07-28 | Outpatient (CLI) | payer MEDICARE, SELFPAY | END | disposition home or self-care (01) | PROVIDERS: PCP Family Medicine | DX: N39.41 Urge incontinence (principal) ==

== ENCOUNTER → 2024-07-29 | Outpatient (CLI) | payer MEDICARE, SELFPAY ==
[2024-07-29 13:45] LABS: Bacteria 0 SEEN /hpf (None Seen); Mucous, Urine 0 SEEN /hpf (<or=2+); Red Blood Cells-Urine 0 SEEN /hpf (0-5); White Blood Cells 0 SEEN /hpf (0-5)
[2024-07-29 14:29] LABS: Color, Urine Yellow (Yellow); Glucose, Dipstick Normal (Normal); Ketone-Dipstick Negative (Negative); Leukocyte Esterase-Dipstick Negative /ul (Negative); Nitrite-Dipstick Negative (Negative); Occult Blood-Urine 10 /ul (Negative); Protein-Dipstick Negative (Negative); Urine Bilirubin Dipstick Negative (Negative); Urine Clarity Clear (Clear); Urine Urobilinogen Normal (Normal)
[2024-07-29 14:51] LABS: Squamous Epithelial Cells - UA 0-5 SEEN /hpf (5-10)
== END | disposition home or self-care (01) ==
LOC: LAB 13:39 → LABSPEC 13:39
PROVIDERS: PCP Family Medicine
DX: N39.41 Urge incontinence (principal)
CPT/HCPCS: 81001; 87086; 87088

== ENCOUNTER 2024-08-07 12:30 | Outpatient (RCR) | payer MEDICARE, SELFPAY ==
--- NOTE | 2024-08-07 13:48 | HP.PTDCSUM ---
Discharge Summary D/C summary: It has been my pleasure to treat INDIGO ROD referred by Dr. Zaida Land DO, with the diagnosis of LOW BACK PAIN AND L SCIATICA for a total of 30 visit(s). Discharge Date: 08/07/24 Please see the following information for a summary of their discharge status. Subjective Subjective: I FEEL PRETTY GOOD RIGHT NOW AND OVER ALL I FEEL SO MUCH BETTER. PATIENT IS PROUD TO SHOW THIS PT THAT SHE CAN TRANSFER SIT TO STAND WITHOUT UE ASSIST. PATIENT REPORTS THE PAIN IN HER KNEES COMES AND GOES. STATES SHE IS REALLY LOOKING FORWARD TO AN UPCOMING 5 WEEK VACATION. UPON RETURN SHE WILL BE ABLE TO USE HER SISTERS OUTDOOR POOL. SHE STATES SHE CAN CURRENTLY WALK ON THE TREADMILL 30 MIN AT 1.5 MPH NO PROBLEM. Pain LBP: Pain Intensity (Out of 10): 3 Mid Back: Pain Intensity (Out of 10): 0 whole body: Pain Intensity (Out of 10): 0 Overall Improvement % Improvement: 75 Objective Objective/Function: PATIENT WAS SEEN TODAY FOR RE-ASSESSMENT. UPON EXAM TODAY: THIS PATIENT AMBULATES INDEP'LY INTO PT WITHOUT ANY AD'S WITH GOOD RODO STRIDE LENGTH AND CADANCE. SHE NOW WALKS WITH GOOD FOOT CLEARANCE, HEEL STRIKE AND TOE OFF PHASES OF GAIT. THIS IS A BIG IMPROVEMENT. SHE DOES STILL HAVE DECREASED TRUNK ROTATION. TUG TIME: 9.46 SEC WITHOUT AD. 30 STS: 10 WITH HANDS ON KNEES. SLS X 6 S R LE AND SLS X 15 S L LE WITHOUT UE ASSIST. Goals Goal 1:: DECREASE C/O INCREASE IN BACK PAIN FROM NEW EPISODE OF PAIN BY AT LEAST 50% TO EASE ADL'S AND HELP PATIENT RETURN TO PLOF Goal Progress: Goal Met Goal 2:: IMPROVE ADL, WALKING, SITTING, STANDING, HOMEMAKING AND SOCIAL LIFE/RECREATIONAL FUNCTION. Goal Progress: Goal Met Goal 3:: INSTRUCT IN PROPHYLAXIS/INDEP HOME AND/OR WATER EX PROGRAM Goal Progress: Goal Met Plan Plan: D/C TO INDEP EX. PATIENT AGREEABLE. D/C Information d/c sentence: If there are questions or concerns regarding this patient's physical therapy, please feel free to call me at [phone]. Thank you for the referral of this patient. Sincerely, Shonna Cabrera, PT, Cert MDT Balance/Gait/Functional tests Balance/Special Test Scores Oswestry Low Back Score: 16 Improvement % Improvement: 75
== END 2024-08-07 14:29 | disposition home or self-care (01) ==
LOC: PT 12:30
PROVIDERS: PCP Family Medicine; Referring Provider Family Medicine; Visit Provider Family Medicine
DX: M54.32 Sciatica, left side (principal); M54.50 Low back pain, unspecified; G89.29 Other chronic pain
CPT/HCPCS: 97113; 97530

== ENCOUNTER → 2024-12-30 | Outpatient (CLI) | payer MEDICARE, SELFPAY ==
[2024-12-30 12:32] LABS: Hematocrit 39.8 % (37-47); Hemoglobin 13.1 g/dL (12.0-15.0); Immature Granulocytes Count 0.030 X10^3/uL (0.0-0.0); Mean Corp Hgb Conc 32.9 g/dL (32-36); Mean Corpuscular Volume 84.9 fL (81-99); Mean Platelet Vol. 9.0 fl (6.2-12.0); NRBC Flagged by Analyzer 0 % (0-5); Platelet Count 252 K/mm3 (150-450); RBC Distribution Width CV 12.9 % (11.6-14.6); RBC Distribution Width SD 39.6 fl (35.1-43.9); Red Blood Count 4.69 M/mm3 (4.2-5.4); White Blood Count 7.6 K/mm3 (4.4-11.0)
[2024-12-30 13:32] LABS: AST(SGOT) 24 U/L (<=31); Alanine Aminotransfer ALT/SGPT 19 U/L (<=34); Albumin, Serum 4.0 g/dL (3.4-4.8); Alkaline Phosphatase 90 U/L (35-104); Anion Gap 10 (5-15); BUN 22 mg/dL (4-19); BUN/Creat Ratio 25.4 RATIO (10-20); Calcium,Total 9.2 mg/dL (7.6-11.0); Carbon Dioxide 27.2 mmol/L (21.0-32.0); Chloride 100 mmol/L (98-108); Cholesterol 149 mg/dL (<=200); Free T3 3.1 pg/mL (2.18-3.98); Globulin 3.2 g/dL (2.2-4.2); Glucose 114 mg/dL (70-99); Low Density Lipoprotein Calc. 79 mg/dL; Potassium 4.3 mmol/L (3.3-5.1); Triglycerides 69 mg/dL; Very Low Density Lipoprotein 14 mg/dL (5-40); Vitamin B12 1246 pg/mL (180-914); Vitamin D,25 Hydroxy 27.0 ng/mL (30-100); cholesterol:hdl ratio screen 2.66
== END | disposition home or self-care (01) ==
LOC: BFHLAB 09:47
PROVIDERS: PCP Family Medicine; Visit Provider Family Medicine
DX: E03.9 Hypothyroidism, unspecified (principal); E11.9 Type 2 diabetes mellitus without complications; D64.9 Anemia, unspecified; Z51.81 Encounter for therapeutic drug level monitoring; E55.9 Vitamin D deficiency, unspecified; E53.8 Deficiency of other specified B group vitamins; E78.5 Hyperlipidemia, unspecified
CPT/HCPCS: 36415; 80053; 80061; 82306; 82607; 83036; 84439; 84443; 84481; 85025

== ENCOUNTER → 2025-04-02 | Outpatient (CLI) | payer MEDICARE, SELFPAY ==
[2025-04-02 15:28] LABS: Free T3 2.8 pg/mL (2.18-3.98)
== END | disposition home or self-care (01) ==
LOC: BFHLAB 13:09
PROVIDERS: PCP Family Medicine; Visit Provider Family Medicine
DX: E03.9 Hypothyroidism, unspecified (principal)
CPT/HCPCS: 36415; 84439; 84443; 84481